=== PATIENT | female | born 1980 | race Caucasian/White ===

== ENCOUNTER 2018-08-07 14:38 | Outpatient (REF) | payer OTHER, SELFPAY ==
[2018-08-07 21:57] LABS: CREATININE 0.84 mg/dL (0.55-1.02); Magnesium 1.9 mg/dL (1.8-2.4); Vitamin B12 526 pg/mL (193-986)
== END 2018-08-07 14:58 ==
LOC: NCHCN 14:38
PROVIDERS: PCP Nurse Practitioner Family; Visit Provider Nurse Practitioner Family
DX: F39 Unspecified mood [affective] disorder (principal); R12 Heartburn; M25.521 Pain in right elbow; E66.9 Obesity, unspecified
CPT/HCPCS: 82565; 82607; 83735

== ENCOUNTER 2019-06-28 11:23 | Outpatient (REF) | payer OTHER, SELFPAY ==
[2019-06-28 20:59] LABS: Abs Immature Grans 0.02 k/cumm (0.0-0.09); Absolute Basophil Count 0.02 k/cumm (0.0-0.2); Absolute Eosinophil Count 0.14 k/cumm (0.0-0.7); Absolute Lymphocyte Count 1.37 k/cumm (1.2-3.4); Absolute Monocyte Count 0.53 k/cumm (0.11-0.7); Absolute Neutrophil Count 5.01 k/cumm (1.2-6.7); Basophils % 0.3; HCT 35.3 % (36.0-46.0); HGB 10.4 g/dL (12.0-15.5); Immature Grans % 0.3 %; Lymphocytes % 19.3; Mean Corp. HGB Concentration 29.5 g/dL (32.0-36.0); Mean Corpuscular Hemoglobin 20.3 pg (27.0-33.0); Mean Corpuscular Volume 68.8 fL (80-95); Mean Platelet Volume 12.4 fL (8.0-11.0); Monocytes % 7.5; Neutrophils % 70.6; RBC 5.13 m/cumm (4.00-5.20); RBC Distribution Width 18.7 % (11.7-14.6); White Blood Cell Count 7.09 k/cumm (4.4-10.8)
[2019-06-28 21:19] LABS: Anisocytosis 2+; Diff Comment RBC Morph Reviewed; Hypochromasia 3+; Microcytosis 3+; Platelet Count 308 x1000/uL (130-400); Polychromasia Present
[2019-06-28 21:27] LABS: Iron 21 ug/dL (50-170); Total Iron Binding Capacity 558 ug/dL (250-450); Transferrin Sat 4 % (15-50)
[2019-06-28 21:42] LABS: ALT 25 U/L (14-59); AST 23 U/L (15-37); Albumin 3.4 g/dL (3.4-5.0); Alkaline Phosphatase 99 U/L (46-116); Anion Gap 10.7 mmol/L (3-11); BUN 15 mg/dL (7-18); Bilirubin, Total 0.3 mg/dL (0.2-1.0); CO2 26.3 mmol/L (21.0-32.0); CREATININE 0.79 mg/dL (0.55-1.02); Calcium 8.8 mg/dL (8.5-10.1); Chloride 104 mmol/L (98-107); Glucose 92 mg/dL (74-106); Magnesium 1.8 mg/dL (1.8-2.4); Potassium 4.5 mmol/L (3.5-5.1); Sodium 141 mmol/L (136-145); TSH (W/Ref FT4) 2.08 uIU/mL (0.36-3.74); Total Protein 7.4 g/dL (6.4-8.2); Vitamin B12 676 pg/mL (193-986)
== END 2019-06-28 11:43 ==
LOC: NCHCN 11:23
PROVIDERS: PCP Nurse Practitioner Family; Visit Provider Nurse Practitioner Family
DX: R53.83 Other fatigue (principal); R51 Headache; R07.89 Other chest pain; R12 Heartburn; F39 Unspecified mood [affective] disorder; E66.9 Obesity, unspecified; M25.522 Pain in left elbow; R55 Syncope and collapse
CPT/HCPCS: 80053; 82607; 83540; 83550; 83735; 84443; 85025

== ENCOUNTER 2019-08-12 22:12 | Outpatient (REF) | payer OTHER, SELFPAY ==
[2019-08-12 22:17] LABS: Abs Immature Grans 0.02 k/cumm (0.0-0.09); Absolute Basophil Count 0.03 k/cumm (0.0-0.2); Absolute Eosinophil Count 0.15 k/cumm (0.0-0.7); Absolute Lymphocyte Count 2.61 k/cumm (1.2-3.4); Absolute Neutrophil Count 5.33 k/cumm (1.2-6.7); Basophils % 0.3; Eosinophils % 1.7; HGB 11.3 g/dL (12.0-15.5); Immature Grans % 0.2 %; Lymphocytes % 29.9; Mean Corp. HGB Concentration 29.7 g/dL (32.0-36.0); Mean Corpuscular Volume 70.8 fL (80-95); Monocytes % 6.9; RBC 5.37 m/cumm (4.00-5.20); White Blood Cell Count 8.74 k/cumm (4.4-10.8)
[2019-08-12 22:25] LABS: Iron 24 ug/dL (50-170)
[2019-08-12 22:38] LABS: Anisocytosis 2+; Hypochromasia 2+; Microcytosis 2+
[2019-08-12 22:39] LABS: Poikilocytes 1+
[2019-08-12 22:40] LABS: Platelet Count 298 x1000/uL (130-400)
== END 2019-08-12 22:32 ==
LOC: NCHCN 22:12
PROVIDERS: PCP Nurse Practitioner Family; Visit Provider Nurse Practitioner Family
DX: D50.9 Iron deficiency anemia, unspecified (principal); R53.83 Other fatigue; R51 Headache; M25.522 Pain in left elbow; R07.89 Other chest pain; R12 Heartburn; F39 Unspecified mood [affective] disorder; E66.9 Obesity, unspecified
CPT/HCPCS: 83540; 85025

== ENCOUNTER 2019-09-14 13:51 | Emergency (ER) | payer OTHER, SELFPAY ==
--- NOTE | 2019-09-14 13:45 | DI.RAD_ITS ---
EXAM: XR FOREARM RT CLINICAL HISTORY: bite, evaluation for retained FB. TECHNIQUE: 2D digital imaging was performed. COMPARISON: No exams were available for comparison FINDINGS: BONES: No acute fracture is present. No bony destructive lesion is seen. Visualized portion of elbow and wrist joints are unremarkable. SOFT TISSUE: Normal. IMPRESSION: Unremarkable radiographs of the right forearm. DATA REPOSITORY: RADIATION DOSE DELIVERED:
--- NOTE | 2019-09-14 13:52 | ED.GENADUL_ITS ---
Discharge Plan Disposition Patient Disposition: HOME Condition: Good Discharge Details Chief Complaint: AnimalBite Clinical Impression: Dog bite of arm Primary Care Provider: Beth Pickett ED Provider: Maria Isabel Giron Home Meds and New Rx's Prescriptions: New amoxicillin-pot clavulanate [Augmentin] 875-125 mg tablet 1 tab PO BID Qty: 13 RF: 0 Continued escitalopram oxalate [Lexapro] 10 MG tablet 10 mg PO DAILY RF: 0 omeprazole [Prilosec] 20 MG capsule,delayed release(DR/EC) 20 mg PO DAILY RF: 0 norgestimate-ethinyl estradiol [Previfem] 0.25-35 mg-mcg tablet PO RF: 0 Discharge Instructions Instructions: Animal Bite (ED) Additional Instructions: Please keep wound clean, dry, covered. Monitor for signs of infection including redness, warmth, drainage, increased pain, fever/chills. If you develop these or other new/worsening symptoms please seek care urgently once again. Please continue with the Augmentin as prescribed, you are given your first dose here today. I would like you to follow-up for reevaluation of your wound with your primary care in 3 days. If you develop any new or worsening symptoms in the interim please seek care emergently. Allow the adhesives to come off naturally. Referrals: Beth Pickett [Primary Care Provider] - Medical Decision Making Patient is a pleasant 39-year-old dubnt-xcaq-putepvxh female presents today with chief complaint of laceration to her right forearm. She reports a prior to arrival she was trying to take away food from her dog when the dog bit her right forearm. She believes the dog is up-to-date on immunizations, she does not know her tetanus status. She reports that dog also attacked her right thigh does not have any active bleeding from this area. She denies . She denies any numbness or tingling distal to the wound. Patient is a 1.5 linear laceration to the dorsal aspect of the right forearm with surrounding swelling and ecchymosis. No active bleeding. No discharge. She is quite tender over this area. 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 Patient does have ecchymosis and swelling on the right thigh with 2 small abrasions but no puncture wounds, no bleeding. She is ambulating well no evidence of weakness or deep structure involvement. Tetanus 2017. To obtain imaging to evaluate for any retained foreign body, particularly as the animal was chewing on a bone. REviewed by radiologist: FINDINGS: Bones/joints: There is no evidence of acute fracture.There is no evidence of malalignment or dislocation. Soft tissues: No retained foreign body. IMPRESSION: 1. There is no evidence of acute fracture.There is no evidence of malalignment or dislocation. 2. No retained foreign body. Discussed these findings with the patient. We discussed possible options regarding wound care management. As this is a bite, I do not want a tight closure on this. It is relatively short wound but does have an exaggerated distance apart in the wound edges associated with the underlying swelling. We discussed loose reapproximation of wound edges with Steri-Strips and adhesive. We discussed risk/benefits and she voiced understanding and wished to proceed. Procedure note: Using standard sterile technique, the wound was copiously irrigated explored to base in a bloodless field no foreign body or debris noted. Wound edges were loosely reapproximated maintaining a slight gap in the edges, adhesives were applied followed by adhesive around the edges of the Steri- Strips. No adhesive was applied over the wound itself. Patient was started on Augmentin, given her first dose here. I encouraged rest, ice, elevation. Tylenol and/or ibuprofen as needed for discomfort. She was given strict return precautions, in particular signs and symptoms of infection. Wound was covered with bandage. All of her questions and concerns were addressed and she is agreement this plan. HPI General Mode of arrival: ambulatory . Date/Time Provider Initiated Documentation: 09/14/19 13:52 . Limitations to Documentation: no limitations . Information obtained by: patient and RN notes reviewed . History of Present Illness 39 year old F presents to the emergency department with the chief complaint of right forearm dog bite, described as moderate, Quality is described as stabbing, and is localized to the right and upper extremity. Patient reports no radiation. Patient started experiencing this minute(s) and it has been constant. No relieving factors improve symptom(s), No exacerbating factors reported . Patient notes no other symptoms.. Patient did receive the following treatments prior to arrival, none Related Data Home Medications Medication Instructions Recorded Confirmed escitalopram oxalate [Lexapro] 10 mg PO DAILY 03/25/15 09/14/19 omeprazole [Prilosec] 20 mg PO DAILY 03/25/15 09/14/19 amoxicillin-pot clavulanate 1 tab PO BID #13 tab 09/14/19 [Augmentin] norgestimate-ethinyl estradiol tab PO 09/14/19 [Previfem] Previous Rx's Medication Instructions Recorded amoxicillin-pot clavulanate 1 tab PO BID #13 tab 09/14/19 [Augmentin] Allergies Allergy/AdvReac Type Severity Reaction Status Date / Time No Known Allergies Allergy Unverified 10/25/16 21:58 Review of Systems Constitutional Constitutional: Reports as per HPI, Denies chills and Denies fever(s) Musculoskeletal Musculoskeletal: Reports as per HPI Integumentary/Breasts Skin/Breast: Reports as per HPI Neurologic Neurologic: Reports as per HPI, Denies sensory deficit and Denies paresthesias [facility] Social History Smoking/Tobacco Use Status: Never Drug use: Never Do you feel safe at home: Yes Do you feel safe in your relationship?: Yes Exam Const General: cooperative, healthy appearing, comfortable, no acute distress and well developed Nutritional Appearance: average body habitus and well nourished Orientation: alert and awake Resp Effort & Inspection: normal respiratory effort, able to speak in complete sentences and no respiratory distress Cardio Rate: regular rate Rhythm: regular rhythm Skin General skin exam: ecchymosis (surrounding laceration and right thigh) Trauma: laceration (1.5cm right forearm, wound edge separation 5mm, deep structures intact) Neuro General: patient alert and patient awake Cognition: normal cognition Speech: speech normal Gait: normal gait Sensory Exam: no sensory deficits noted Extrem Elbow/forearm/wrist images: 1. 1.5cm laceration. 2+ distal pulses, full ROM of elbow, wrist, fingers. Neurovascularly intact Knee images: 1. area of ecchymosis and swelling with 2 abrasions, no break in her pants. No bleeding. Exam otherwise benign. Psych Appearance: grossly normal and well kempt Mental Status: mental status grossly normal Speech and Movement: speech and movement normal
[2019-09-14 13:56] VITALS: BP 136/81; PULSE 81; RESP 17; TEMP 37; O2SAT 97
[2019-09-14] MEDS: Amoxicillin 875/Clav. 125 TAB PO (14:20)
--- NOTE | 2019-09-14 14:25 | DI.VRAD_ITS ---
PROCEDURE INFORMATION: Exam: XR Right Forearm Exam date and time: 09/14/2019 2:13 PM Age: 39 years old Clinical indication: Other: Bite, evaluation for retained fb TECHNIQUE: Imaging protocol: XR Right forearm. Views: 2 views. COMPARISON: No relevant prior studies available. FINDINGS: Bones/joints: There is no evidence of acute fracture.There is no evidence of malalignment or dislocation. Soft tissues: No retained foreign body. IMPRESSION: 1. There is no evidence of acute fracture.There is no evidence of malalignment or dislocation. 2. No retained foreign body. Dictated and Authenticated by: Siddhartha Michaels MD. Ordering:TORIN Nicolas MD
== END 2019-09-14 14:45 | disposition home or self-care (01) ==
PROVIDERS: Emergency Provider Physician Assistant; PCP Nurse Practitioner Family
DX: S51.851A Open bite of right forearm, initial encounter (principal); W54.0XXA Bitten by dog, initial encounter
CPT/HCPCS: 12001; 73090

== ENCOUNTER 2019-11-12 17:21 | Outpatient (REF) | payer OTHER, SELFPAY ==
[2019-11-12 20:23] LABS: Abs Immature Grans 0.01 k/cumm (0.0-0.09); Absolute Basophil Count 0.02 k/cumm (0.0-0.2); Absolute Eosinophil Count 0.12 k/cumm (0.0-0.7); Absolute Lymphocyte Count 2.02 k/cumm (1.2-3.4); Absolute Monocyte Count 0.64 k/cumm (0.11-0.7); Absolute Neutrophil Count 4.54 k/cumm (1.2-6.7); Basophils % 0.3; Eosinophils % 1.6; HCT 42.3 % (36.0-46.0); HGB 12.9 g/dL (12.0-15.5); Immature Grans % 0.1 %; Lymphocytes % 27.5; Mean Corp. HGB Concentration 30.5 g/dL (32.0-36.0); Mean Corpuscular Hemoglobin 23.9 pg (27.0-33.0); Mean Corpuscular Volume 78.3 fL (80-95); Mean Platelet Volume 12.3 fL (8.0-11.0); Monocytes % 8.7; Neutrophils % 61.8; Platelet Count 293 x1000/uL (130-400); RBC Distribution Width 20.1 % (11.7-14.6); White Blood Cell Count 7.35 k/cumm (4.4-10.8)
[2019-11-12 20:39] LABS: Iron 25 ug/dL (50-170)
== END 2019-11-12 17:41 ==
LOC: NCHCN 17:21
PROVIDERS: PCP Nurse Practitioner Family; Visit Provider Nurse Practitioner Family
DX: D50.9 Iron deficiency anemia, unspecified (principal); R53.83 Other fatigue; R51 Headache; R12 Heartburn; F39 Unspecified mood [affective] disorder; E66.9 Obesity, unspecified
CPT/HCPCS: 83540; 85025

== ENCOUNTER 2020-04-17 14:16 | Outpatient (REF) | payer OTHER, SELFPAY ==
[2020-04-22 13:38] LABS: Patient Race White; SARS-CoV-2 RNA Undetected (Undetected); SARS-CoV-2 Specimen Source Nasal
== END 2020-04-17 14:36 ==
LOC: NCHCN 14:16
PROVIDERS: PCP Nurse Practitioner Family; Visit Provider Nurse Practitioner Family
DX: Z20.828 Contact with and (suspected) exposure to other viral communicable diseases (principal)
CPT/HCPCS: U0003

== ENCOUNTER 2020-04-24 10:51 | Outpatient (REF) | payer OTHER, SELFPAY ==
[2020-04-24 21:55] LABS: Abs Immature Grans 0.03 10^3/uL (0.0-0.06); Absolute Basophil Count 0.04 10^3/uL (0.0-0.2); Absolute Eosinophil Count 0.08 10^3/uL (0.0-0.7); Absolute Lymphocyte Count 1.42 10^3/uL (1.2-3.4); Absolute Monocyte Count 0.52 10^3/uL (0.1-0.8); Absolute Neutrophil Count 4.99 10^3/uL (1.2-6.7); Basophils % 0.6; Eosinophils % 1.1; HCT 46.9 % (36.0-46.0); HGB 14.6 g/dL (11.2-15.7); Immature Grans % 0.4; Iron 65 ug/dL (50-170); Lymphocytes % 20.1; MCH 28.7 pg (27.0-33.0); MCHC 31.1 % (32.0-36.0); MCV 92.1 fL (80-95); Monocytes % 7.3; Neutrophils % 70.5; Nucleated RBC 0 %; Platelet Count 274 10^3/uL (130-400); RBC 5.09 10^6/uL (3.93-5.22); RDW 13.7 % (11.7-14.6); RDW-SD 46.8 fL; Total Iron Binding Capacity 439 ug/dL (250-450); Transferrin Sat 15 % (15-50); WBC 7.08 10^3/uL (4.4-10.8)
[2020-04-24 22:34] LABS: ESR 36 mm/hr (0-20)
[2020-04-24 22:37] LABS: ALT 19 U/L (14-59); AST 15 U/L (15-37); Albumin 3.6 g/dL (3.4-5.0); Alkaline Phosphatase 97 U/L (46-116); Anion Gap 9.2 mmol/L (3-11); BUN 9 mg/dL (7-18); Bilirubin, Total 0.2 mg/dL (0.2-1.0); CO2 28.8 mmol/L (21.0-32.0); CREATININE 0.81 mg/dL (0.55-1.02); Calcium 8.9 mg/dL (8.5-10.1); Chloride 103 mmol/L (98-107); Ferritin 24 ng/mL (8-252); Glucose 84 mg/dL (74-106); Magnesium 2.1 mg/dL (1.8-2.4); Potassium 4.2 mmol/L (3.5-5.1); Sodium 141 mmol/L (136-145); Total Protein 7.4 g/dL (6.4-8.2); Vitamin B12 563 pg/mL (193-986)
[2020-04-24 22:58] LABS: C-Reactive Protein 1.65 mg/dL (0.0-0.3)
[2020-04-30 15:02] LABS: Anaplasma phagocytophilum Negative (Negative); Babesia divergens/MO-1 Negative (Negative); Babesia duncani Negative (Negative); Babesia microti Negative (Negative); Ehrlichia chaffeensis Negative (Negative); Ehrlichia ewingii/canis Negative (Negative); Ehrlichia muris eauclairensis Negative (Negative); Lyme Ab w Rflx to Lyme Confirm Negative (Negative)
[2020-04-30 15:03] LABS: B. miyamotoi PCR Negative (Negative)
== END 2020-04-24 11:11 ==
LOC: NCHCN 10:51
PROVIDERS: PCP Nurse Practitioner Family; Visit Provider Nurse Practitioner Family
DX: D50.9 Iron deficiency anemia, unspecified (principal); R53.83 Other fatigue; M79.10 Myalgia, unspecified site
CPT/HCPCS: 80053; 85652; 87798; 82607; 82728; 83540; 83550; 83735; 84443; 85025; 86038; 86140; 86618

== ENCOUNTER 2020-05-28 21:51 | Outpatient (REF) | payer OTHER, SELFPAY ==
[2020-05-28 22:51] LABS: Vitamin D 25 Total 24.2 ng/ml (30-100)
== END 2020-05-28 22:11 ==
LOC: NCHCN 21:51
PROVIDERS: PCP Nurse Practitioner Family; Visit Provider Nurse Practitioner Family
DX: R53.83 Other fatigue (principal); F39 Unspecified mood [affective] disorder
CPT/HCPCS: 82306

== ENCOUNTER 2020-06-17 15:04 | Outpatient (REF) | payer OTHER, SELFPAY ==
[2020-06-19 13:05] LABS: Phospholipid Ab, IgG <9.4 GPL; Phospholipid Ab, IgM 11.9 MPL
[2020-06-19 21:32] LABS: Beta 2 GP1 Ab IgG <9.4 U/mL; Beta 2 GP1 Ab IgM <9.4 U/mL
== END 2020-06-17 15:24 ==
LOC: NCHCN 15:04
PROVIDERS: PCP Nurse Practitioner Family; Visit Provider Nurse Practitioner Family
DX: R76.8 Other specified abnormal immunological findings in serum (principal)
CPT/HCPCS: 86146; 86147

== ENCOUNTER 2020-06-17 15:25 | Emergency (ER) | payer OTHER, SELFPAY ==
[2020-06-17] VITALS (38 sets, daily range): BP systolic 109–131; BP diastolic 72–81; PULSE 62–81; RESP 12–25; TEMP 36.4–36.6; O2SAT 97–100
--- NOTE | 2020-06-17 15:30 | RT.EKG_ITS ---
APPROVED REPORT Exam: Resting ECG Patient Location: E HR:84 bpm ECG Measurements Heart Rate 84 AXIS ND 143 P 79 QRSd 93 QRS 43 QT 392 T 17 QTc 465 Conclusion Sinus rhythm...normal P axis, V-rate 60- 99 prolonged qt
[2020-06-17 16:19] LABS: Abs Immature Grans 0.04 10^3/uL (0.0-0.06); Absolute Basophil Count 0.03 10^3/uL (0.0-0.2); Absolute Eosinophil Count 0.15 10^3/uL (0.0-0.7); Absolute Lymphocyte Count 2.31 10^3/uL (1.2-3.4); Absolute Monocyte Count 0.72 10^3/uL (0.1-0.8); Absolute Neutrophil Count 6.61 10^3/uL (1.2-6.7); Basophils % 0.3; Eosinophils % 1.5; HCT 46.2 % (36.0-46.0); HGB 14.5 g/dL (11.2-15.7); Immature Grans % 0.4; Lymphocytes % 23.4; MCH 28.6 pg (27.0-33.0); MCHC 31.4 % (32.0-36.0); MCV 91.1 fL (80-95); MPV 11.5 fL (8.0-11.0); Monocytes % 7.3; Neutrophils % 67.1; Nucleated RBC 0 %; Platelet Count 292 10^3/uL (130-400); RBC 5.07 10^6/uL (3.93-5.22); RDW 13.8 % (11.7-14.6); RDW-SD 46.6 fL; WBC 9.86 10^3/uL (4.4-10.8)
[2020-06-17] MEDS: ACETAMINOPHEN 1,000 MG/100 ML BTL 400 MG IVPB (16:32)
[2020-06-17 16:36] LABS: Bilirubin Negative (Negative); Blood Small (Negative); Clarity Clear (Clear); Glucose Negative (Negative); Ketones Negative (Negative); Leukocyte Esterase Negative (Negative); Nitrite Negative (Negative); Specific Gravity 1.025 (1.005-1.025); Urobilinogen 0.2 EU/dL (Up TO 0.2)
[2020-06-17 16:42] LABS: ALT 18 U/L (14-59); AST 13 U/L (15-37); Albumin 3.3 g/dL (3.4-5.0); Alkaline Phosphatase 98 U/L (46-116); BUN 10 mg/dL (7-18); Bilirubin, Total 0.2 mg/dL (0.2-1.0); Calcium 8.8 mg/dL (8.5-10.1); Chloride 105 mmol/L (98-107); Glucose 101 mg/dL (74-106); Potassium 3.2 mmol/L (3.5-5.1); Sodium 140 mmol/L (136-145); Total Protein 7.8 g/dL (6.4-8.2)
[2020-06-17 16:45] LABS: Troponin I < 0.05 ng/mL (<0.06)
[2020-06-17 17:04] LABS: Bacteria Negative HPF (Negative); C & S Indicated? No; Crystals Negative HPF (Negative); Epithelial Cells Negative HPF (Negative); Mucus Negative (Negative); Other Cells Rare Yeast (Negative); WBC 0-2 HPF (0-5)
--- NOTE | 2020-06-17 17:05 | DI.CT_ITS ---
EXAM: CT CHEST PE ABD PELVIS W CLINICAL HISTORY: chest pain. TECHNIQUE: Imaging Protocol: Axial CT angiography was performed with multi-slice acquisition and m ulti-planar and/or 3D reconstructions. CONTRAST MATERIAL: Intravenous: Omnipaque 350 Contrast volume:100 ml Oral: None COMPARISON: CT ABD PELVIS WITH CONTRAST from 09/19/2017 FINDINGS: CHEST: PULMONARY ARTERIES: There are no intra-arterial filling defects to suggest the presence of acute pulm onary emboli. LUNGS: There is no evidence of pulmonary infarction. No significant infiltrates.However, there appea r to be tiny bilateral pleural effusions, barely discernible. MEDIASTINUM: There is no hilar nor mediastinal adenopathy. Visualized thyroid unremarkable. CARDIAC: Heart size is normal. There is no pericardial effusion. There is no significant shift of t he interventricular septum.Caliber of the thoracic no evidence of aortic dissection. OSSEOUS: No significant osseous lesions.. ABDOMEN: There is no ascites. LIVER: There are no focal hepatic lesions nor dilatation of intrahepatic ducts. GALLBLADDER/BILIARY: No obvious gallbladder pathology. CBD is not dilated. PANCREAS: No evidence of pancreatic mass nor dilatation of the pancreatic duct. SPLEEN: Spleen is not enlarged. There are no intrasplenic lesions. Splenic and portal veins are pickett nt. ADRENALS: There are no significant adrenal masses. KIDNEYS:No cysts evident. No calculi nor hydronephrosis. No solid renal masses. ABDOMINAL AORTA: Abdominal aorta is not enlarged and there is no milkmgsmrichwwj-izla-pzzsfz adenopat hy. ABDOMINAL WALL/GI: No evidence of significant anterior abdominal wall hernia. No bowel obstruction. PELVIS: LYMPH NODES: There is no intrapelvic nor inguinal adenopathy. GI: No evidence of appendicitis.No evidence of sigmoid diverticulitis. URINARY BLADDER: No calculi nor masses evident REPRODUCTIVE: Unremarkable. OSSEOUS: No significant osseous lesions. IMPRESSION: 1. No evidence of acute pulmonary emboli nor pulmonary infarction. 2. There are the bilateral pleural effusions. No intrathoracic adenopathy. 3. No significant findings in the abdomen and pelvis. RADIATION DOSE DELIVERED: 1,691.89mGy.cm Total DLP 1,691.89mGy.cm Total DLP DATA REPOSITORY: All CT scans at this facility are submitted to the National Radiology Data Registry (NRDR) Dose Index Registry (DIR) with the [employer] (A[employer]). RADIATION OPTIMIZATION: All CT scans at this facility use at least one of these dose optimization te chniques: automated exposure control; mA and/or kV adjustment per patient size (includes targeted exa ms where dose is matched to clinical indication); or iterative reconstruction.
--- NOTE | 2020-06-17 17:25 | DI.VRAD_ITS ---
PROCEDURE INFORMATION: Exam: CT Angiography Chest With Contrast Exam date and time: 06/17/2020 4:12 PM Age: 40 years old Clinical indication: Chest pain; Abdominal pain; Flank; Left upper quadrant (luq) TECHNIQUE: Imaging protocol: Computed tomographic angiography of the chest with intravenous contrast. 3D rendering (Not supervised by radiologist): MIP and/or 3D reconstructed images were created by the technologist. Radiation optimization: All CT scans at this facility use at least one of these dose optimization techniques: automated exposure control; mA and/or kV adjustment per patient size (includes targeted exams where dose is matched to clinical indication); or iterative reconstruction. Contrast material: OMNI 300; COMPARISON: CR CHEST 2 VIEWS PA,LAT 08/20/2014 9:01 AM FINDINGS: Pulmonary arteries: Normal. No pulmonary emboli. Aorta: Unremarkable. No aortic aneurysm. No aortic dissection. Lungs: Unremarkable. No consolidation. No masses. Pleural space: Small bilateral pleural effusions. Heart: Unremarkable. No cardiomegaly. No pericardial effusion. Lymph nodes: Unremarkable. No enlarged lymph nodes. Bones/joints: Unremarkable. No acute fracture. Soft tissues: Unremarkable. IMPRESSION: 1. No aortic dissection. 2. No pulmonary emboli. 3. Small bilateral pleural effusions. PROCEDURE INFORMATION: Exam: CT Angiography Abdomen With Contrast Exam date and time: 06/17/2020 4:12 PM Age: 40 years old Clinical indication: Chest pain; Abdominal pain; Flank; Left upper quadrant (luq) TECHNIQUE: Imaging protocol: Computed tomographic angiography images of the abdomen with intravenous contrast material. 3D rendering (Not supervised by radiologist): MIP and/or 3D reconstructed images were created by the technologist. Radiation optimization: All CT scans at this facility use at least one of these dose optimization techniques: automated exposure control; mA and/or kV adjustment per patient size (includes targeted exams where dose is matched to clinical indication); or iterative reconstruction. Contrast material: OMNI 300; COMPARISON: CR CHEST 2 VIEWS PA,LAT 08/20/2014 9:01 AM FINDINGS: Aorta: No aortic aneurysm. No aortic dissection. Celiac trunk and mesenteric arteries: No occlusion or significant stenosis. Renal arteries: No occlusion or significant stenosis. Liver: Normal. No mass. Gallbladder and bile ducts: Normal. No calcified stones. No ductal dilation. Pancreas: Normal. No ductal dilation. Spleen: Normal. No splenomegaly. Adrenals: Normal. No mass. Kidneys and ureters: Normal. No hydronephrosis. Stomach and bowel: Unremarkable. No obstruction. No mucosal thickening. Lymph nodes: Unremarkable. No enlarged lymph nodes. Intraperitoneal space: Unremarkable. No free air. No significant fluid collection. Reproductive: Midline uterus with no adnexal mass. Bones/joints: Unremarkable. No acute fracture. No dislocation. Soft tissues: Small fat containing umbilical hernia. IMPRESSION: No acute findings. Dictated and Authenticated by: Jeevan Casanova MD. Ordering:CHIDI Juarez MD
--- NOTE | 2020-06-17 17:48 | ED.GENADUL_ITS ---
Discharge Plan Disposition Patient Disposition: HOME Condition: Stable Discharge Details Clinical Impression: Acute left flank pain, Hematuria, History of paresthesia Primary Care Provider: Beth Pickett ED Provider: Larry Swift Home Meds and New Rx's Prescriptions: Continued escitalopram oxalate [Lexapro] 10 mg tablet 20 mg PO DAILY RF: 0 ferrous gluconate 256 mg (28 mg iron) tablet 256 mg PO DAILY RF: 0 omeprazole 20 mg capsule,delayed release(DR/EC) 20 mg PO DAILY RF: 0 norgestimate-ethinyl estradiol [Previfem] 0.25-35 mg-mcg tablet 1 tab PO DAILY RF: 0 Discharge Instructions Instructions: Hematuria (ED), Flank Pain (ED) Additional Instructions: Please follow-up tomorrow with your primary care physician and [facility] neurology. [facility] neurology as requested MRI be expedited. I have asked care management to assist in arranging these studies as soon as possible. Please take ibuprofen over the counter. Take 600mg by mouth every 6 hours as needed for pain. Please take acetaminophen (tylenol) - 650mg every 6 hours by mouth as needed for pain. Return to the ER for any worsening or new concerning symptoms. Referrals: Beth Pickett [Primary Care Provider] - Medical Decision Making 18:17 -- 40-year-old female with severe pain in her left back radiating to left flank. Patient has had intermittent paresthesias effected right side of her body over the past 2-3 months. Seen by rheumatology and referred to neurology. There is concern for potential MS and she is scheduled for outpatient MRI. Screening ECG was reviewed and interpreted by me: Sinus rhythm 84 bpm, normal axis, very subtle ST depressions noted V4 to V6. No old for comparison. Troponin done and negative. Patient has no chest pain. Considered pulmonary embolism versus renal stone versus other acute surgical or life-threatening pathology. CT imaging was obtained. CT of the chest was interpreted by radiology: IMPRESSION: 1. No aortic dissection. 2. No pulmonary emboli. 3. Small bilateral pleural effusions. CT of the abdomen pelvis interpreted by radiology: FINDINGS: Aorta: No aortic aneurysm. No aortic dissection. Celiac trunk and mesenteric arteries: No occlusion or significant stenosis. Renal arteries: No occlusion or significant stenosis. Liver: Normal. No mass. Gallbladder and bile ducts: Normal. No calcified stones. No ductal dilation. Pancreas: Normal. No ductal dilation. Spleen: Normal. No splenomegaly. Adrenals: Normal. No mass. Kidneys and ureters: Normal. No hydronephrosis. Stomach and bowel: Unremarkable. No obstruction. No mucosal thickening. Lymph nodes: Unremarkable. No enlarged lymph nodes. Intraperitoneal space: Unremarkable. No free air. No significant fluid collection. Reproductive: Midline uterus with no adnexal mass. Bones/joints: Unremarkable. No acute fracture. No dislocation. Soft tissues: Small fat containing umbilical hernia. IMPRESSION: No acute findings. Labs reviewed - nondiagnostic. Patient reassessed after acetaminophen IV and continues to have discomfort of unclear etiology. Given recent neurologic symptoms does raise a question of potential transverse myelitis. Patient does not have any autonomic dysreflexia and no current focal neurologic deficits but has had waxing and waning paresthesias affecting the right side of her body. I do not have MRI capability here at [facility] today. Will consult [facility] neurology. I have called the transfer center to request consult. 18:53 -- I called and spoke with Dr. Shafer neurology at [facility] - she recommends MRI tomorrow and outpatient followup. I will ask care management to assist in arranging study through pcp tomorrow. [facility] recommend C, T, L spine with and w/o contrast. Usual customary discharge instructions reviewed with patient and she understands return immediately for any worsening or new concerning symptoms. HPI General Mode of arrival: ambulatory . Date/Time Provider Initiated Documentation: 06/17/20 15:37 . Limitations to Documentation: no limitations . Information obtained by: patient . HPI Narrative: 40-year-old female with severe pain in her left back radiating to left flank. Patient has had intermittent paresthesias effected right side of her body over the past 2-3 months. Seen by rheumatology and referred to neurology. There is concern for potential MS and she is scheduled for outpatient MRI. Pain today is moderate to severe. Pain started yesterday. Described as tight pressure that started in her left mid paraspinal back and radiated to left flank. Pain worse with deep inspiration. No leg swelling or calf pain. Related Data Home Medications Medication Instructions Recorded Confirmed norgestimate-ethinyl estradiol 1 tab PO DAILY 09/14/19 06/17/20 [Previfem] escitalopram oxalate 10 mg tablet 20 mg PO DAILY tab 05/26/20 06/17/20 ferrous gluconate 256 mg (28 mg 256 mg PO DAILY 05/26/20 06/17/20 iron) tablet omeprazole 20 mg capsule,delayed 20 mg PO DAILY 05/26/20 06/17/20 release Allergies Allergy/AdvReac Type Severity Reaction Status Date / Time No Known Allergies Allergy Unverified 06/17/20 15:39 General Stated Complaint: Abd Prob SVITLANA: 3 Review of Systems All systems reviewed & are unremarkable except as noted in HPI and below Gastrointestinal Gastrointestinal: Reports as per HPI Genitourinary Genitourinary: Denies urinary incontinence [facility] Medical History Anemia, iron deficiency Elevated antinuclear antibody (LIZA) level Elevated C-reactive protein Elevated sedimentation rate Fatigue Frequent sinus infections Headache Heartburn Malaise and fatigue Mood disorder Myalgia Obesity Paresthesia Social History Smoking/Tobacco Use Status: Never Smoking risk assessment performed?: Yes Drug use: Never Substance use type: does not use Do you feel safe at home: Yes Do you feel safe in your relationship?: Yes Exam Const General: cooperative and no acute distress HENMT Mouth: moist mucous membranes Eyes Conjunctivae: normal conjunctivae Sclera: normal sclerae Neck Neck: trachea midline and supple Resp Auscultation: clear to auscultation bilaterally, no rales, no rhonchi and no wheezes Cardio Rate: regular rate and not tachycardic Rhythm: regular rhythm GI Palpation: soft, not firm, no guarding, no masses, not rigid and tender in the LUQ; with no rebound tenderness Back/Spine/Pelvis Cervical Spine: No cervical spinal tenderness Thoracic/Lumbar Spine: paraspinal tenderness (left), No thoracic spinal t enderness and No lumbar spinal tenderness Sacrum: no ecchymosis, no erythema and no swelling Skin General skin exam: no rashes or lesions noted Neuro General: patient alert, patient awake, patient oriented x3 and tone normal Cranial Nerves: CN's II-XI intact bilaterally Cognition: normal cognition Speech: speech normal Motor: strength 5/5 throughout Sensory Exam: no sensory deficits noted Extrem General: no edema Psych Appearance: grossly normal Mental Status: mental status grossly normal Speech and Movement: speech and movement normal Course Vital Signs Vital signs: Vital Signs Temperature 36.4 C L 06/17/20 15:32 Pulse 81 06/17/20 15:32 Respiratory Rate 16 06/17/20 15:32 Pulse Oximetry 100 06/17/20 15:32 Temperature 36.4 C L 06/17/20 15:32 Temperature Source Temporal Artery Scan 06/17/20 15:32 Pulse 65 06/17/20 16:31 Pulse 65 06/17/20 16:40 Respiratory Rate 25 H 06/17/20 16:40 Respiratory Effort Non-Labored 06/17/20 15:37 Blood Pressure 122/73 06/17/20 16:31 Blood Pressure Mean 86 06/17/20 16:31 Blood Pressure Position Supine 06/17/20 15:32 Pulse Oximetry 99 06/17/20 16:40 Oxygen Delivery Method Room Air 06/17/20 15:32 Oxygen Flow Rate 0 06/17/20 15:32 Pain Level 7 06/17/20 15:32 Lab/Test Results Lab/Test Results: Laboratory Tests Range/Units 06/17/20 06/17/20 06/17/20 15:30 15:30 16:25 WBC (4.4-10.8) 10^3/uL 9.86 RBC (3.93-5.22) 10^6/uL 5.07 Hgb (11.2-15.7) g/dL 14.5 Hct (36.0-46.0) % 46.2 H MCV (80-95) fL 91.1 MCH (27.0-33.0) pg 28.6 MCHC (32.0-36.0) % 31.4 L RDW (11.7-14.6) % 13.8 Plt Count (130-400) 10^3/uL 292 MPV (8.0-11.0) fL 11.5 H Immature Gran % 0.4 Neutrophils % 67.1 Lymphocytes % 23.4 Monocytes % 7.3 Eosinophils % 1.5 Basophils % 0.3 Nucleated RBC % % 0 Absolute Neutrophils (1.2-6.7) 10^3/uL 6.61 Absolute Lymphocytes (1.2-3.4) 10^3/uL 2.31 Absolute Monocytes (0.1-0.8) 10^3/uL 0.72 Absolute Eosinophils (0.0-0.7) 10^3/uL 0.15 Absolute Basophils (0.0-0.2) 10^3/uL 0.03 Sodium (136-145) mmol/L 140 Potassium (3.5-5.1) mmol/L 3.2 L Chloride (98-107) mmol/L 105 Carbon Dioxide (21.0-32.0) mmol/L 26.0 Anion Gap (3-11) mmol/L 9.0 BUN (7-18) mg/dL 10 Creatinine (0.55-1.02) mg/dL 0.90 Estimated GFR/1.73 m2 (mL/min/1.73m2) >= 60.00 Glucose (74-106) mg/dL 101 Calcium (8.5-10.1) mg/dL 8.8 Total Bilirubin (0.2-1.0) mg/dL 0.2 AST (15-37) U/L 13 L ALT (14-59) U/L 18 Alkaline Phosphatase (46-116) U/L 98 Troponin I (<0.06) ng/mL < 0.05 Total Protein (6.4-8.2) g/dL 7.8 Albumin (3.4-5.0) g/dL 3.3 L Urine Color (Yellow) Yellow Urine Clarity (Clear) Clear Urine pH (5-8) 6.0 Ur Specific Krebs (1.005-1.025) 1.025 Urine Protein (Negative) mg/dL Negative Urine Ketones (Negative) mg/dL Negative Urine Blood (Negative) Small H Urine Nitrite (Negative) Negative Urine Bilirubin (Negative) Negative Urine Urobilinogen (Up TO 0.2) EU/dL 0.2 Ur Leukocyte Esterase (Negative) Negative Urine RBC (0-2) HPF 10-20 H Urine WBC (0-5) HPF 0-2 Ur Epithelial Cells (Negative) HPF Negative Urine Crystals (Negative) HPF Negative Urine Bacteria (Negative) HPF Negative Urine Mucus (Negative) Negative Urine Other (Negative) Rare yeast Ur Culture Indicated? No Urine Glucose (Negative) mg/dL Negative POC- Test(urine) Negative
[2020-06-17] MEDS: oxyCODONE 5 MG TAB PO (18:02)
[2020-06-17] MEDS: Potassium Chloride 20 MEQ TABCR PO (18:02)
== END 2020-06-17 19:35 | disposition home or self-care (01) ==
PROVIDERS: Emergency Provider Student in an Organized Health Care Education/Training Program; PCP Nurse Practitioner Family
DX: M54.5 Low back pain (principal); R10.32 Left lower quadrant pain; R20.2 Paresthesia of skin; R31.9 Hematuria, unspecified
CPT/HCPCS: 36415; 71275; 74177; 80053; 81025; 93005; 96365; 99285; 81003; 81015; 84484; 85025; 93010; J0131

== ENCOUNTER 2020-08-04 02:57 | Outpatient (CLI) | payer OTHER, SELFPAY ==
--- NOTE | 2020-08-04 15:45 | RT.EKG_ITS ---
APPROVED REPORT Exam: Resting ECG Patient Location: O HR:66 bpm ECG Measurements Heart Rate 66 AXIS CA 144 P 56 QRSd 89 QRS 14 QT 414 T 17 QTc 434 Conclusion Sinus rhythm...normal P axis, V-rate 60- 99 1
== END 2020-08-04 02:58 | disposition home or self-care (01) ==
LOC: RT 02:58
PROVIDERS: PCP Nurse Practitioner Family; Visit Provider Internal Medicine
DX: R79.82 Elevated C-reactive protein (CRP) (principal)
CPT/HCPCS: 93005; 93010

== ENCOUNTER 2020-09-09 11:16 | Emergency (ER) | payer OTHER, SELFPAY ==
[2020-09-09] VITALS (37 sets, daily range): BP systolic 112–126; BP diastolic 73–93; PULSE 68–90; RESP 14–29; TEMP 36.6; O2SAT 97–100
--- NOTE | 2020-09-09 11:15 | RT.EKG_ITS ---
APPROVED REPORT Exam: Resting ECG Patient Location: E HR:76 bpm ECG Measurements Heart Rate 76 AXIS W[place] 144 P 43 QRSd 93 QRS 25 QT 412 T 13 QTc 463 Conclusion Sinus rhythm...normal P axis, V-rate 60- 99 I have reviewed and interpreted ECG and agree with software generated interpretation.
--- NOTE | 2020-09-09 11:31 | ED.GENADUL_ITS ---
Discharge Plan Disposition Patient Disposition: HOME Condition: Stable Discharge Details Clinical Impression: Atypical chest pain Primary Care Provider: Beth Pickett ED Provider: Leesa Matson Home Meds and New Rx's Prescriptions: Continued escitalopram oxalate [Lexapro] 10 mg tablet 20 mg PO DAILY RF: 0 ferrous gluconate 256 mg (28 mg iron) tablet 256 mg PO DAILY RF: 0 omeprazole 20 mg capsule,delayed release(DR/EC) 20 mg PO DAILY RF: 0 norgestimate-ethinyl estradiol [Previfem] 0.25-35 mg-mcg tablet 1 tab PO DAILY RF: 0 doxycycline monohydrate 100 mg tablet 200 mg PO BID RF: 0 Discharge Instructions Instructions: Chest Pain (ED) Additional Instructions: Drink plenty of fluids and get plenty of rest. Alternate tylenol and motrin as needed and directed for pain. Return the quality assurance monitor to the hospital as directed by respiratory therapy. Call your primary care doctor's office tomorrow to schedule a follow-up appointment for reevaluation and for referral for outpatient stress test if your symptoms do not improve or worsen. Return immediately to the emergency department if you develop any worsening or new concerning symptoms. Discharge Data Discharge Date/Time-TO BE ENTERED AT DEPARTURE: 09/09/20 15:28 Discharge Physician: Leesa Matson Medical Decision Making 40-year-old female with a history of chronic fatigue, obesity currently being followed by rheumatology for potential autoimmune disease and being treated with doxycycline for Lyme disease presents for an episode of abnormal heart rate and left-sided chest pressure that occurred while sitting at home today. She showed me a review of her heart rate over several hours this morning in the range of between 64 and 115. She denies any palpitations, shortness of breath, vomiting or dizziness during these episodes. She states she has mild left-sided chest pressure at this time. EKG notes a rate of 76, sinus, no STEMI, nondiagnostic. She appears comfortable and nontoxic. Her lungs are clear. Chest and abdomen nontender. Differential diagnosis includes chest wall strain, anxiety, medication reaction. Also consider PE, pneumonia, costochondritis. History and presentation not consistent with ACS or dissection. Will obtain screening labs, CT chest and give a dose of Toradol and reassess. Labs and imaging reviewed and unremarkable. Patient reassessed and her pain is improved. She is agreeable with plan to stay for a second troponin. Repeat troponin negative. Repeat EKG unchanged. Patient states she now noticed that her heart rate dropped as low as the 40s today on her watch tracker. Patient has been on the quality assurance monitor while in the emergency department and there was no bradycardia or tachycardia noted. Will place a 48-hour quality assurance monitor. Patient advised to follow-up with her primary care doctor for reevaluation and for consideration for outpatient stress test if her symptoms not improve or worsen. Usual and customary return precautions given prior to discharge. Medical Records Medical records reviewed: Yes I reviewed the patient's medical records. Imaging Data Radiologic Study: Radiologist's impression: CT CHEST PE CTA CLINICAL HISTORY: chest pressure, r/o PE. TECHNIQUE: Imaging Protocol: CT angiography of the chest was performed using pulmonary embolus protocol. Multi planar reconstructions were performed. CONTRAST MATERIAL: Intravenous: Omnipaque 350 Contrast volume: 100 cc COMPARISON: CT CT CHEST PE ABD PELVIS W from 06/17/2020 FINDINGS: CHEST: PULMONARY ARTERIES: There are no intraluminal filling defects to suggest acute pulmonary emboli. LUNGS: Mild benign-appearing increased subpleural markings both lungs. No confluent infiltrates. No ominous pulmonary nodules.. No pleural effusions. No significant focal findings in the trachea and mainstem bronchi. MEDIASTINUM: There is no hilar nor mediastinal adenopathy. Visualized thyroid unremarkable. CARDIAC: Heart size is normal. There is no pericardial effusion.Caliber of the thoracic aorta is within normal limits. There is no evidence of shift of the interventricular septum. PARTIALLY VISUALIZED UPPERMOST ABDOMEN: No obvious findings OSSEOUS: No significant osseous lesions.Scoliosis noted convex right in the thoracic spine.. IMPRESSION: 1. No evidence of acute pulmonary emboli. No evidence of pulmonary infarction.No pleural effusions. 2. No intrathoracic adenopathy evident. 3. Scoliosis convex right noted in the thoracic spinal column. Lab Data Lab results reviewed: Yes I reviewed the patient's lab results. Labs: Laboratory Tests Range/Units 09/09/20 09/09/20 09/09/20 11:30 11:30 11:30 WBC (4.4-10.8) 10^3/uL 7.81 RBC (3.93-5.22) 10^6/uL 4.90 Hgb (11.2-15.7) g/dL 13.8 Hct (36.0-46.0) % 44.3 MCV (80-95) fL 90.4 MCH (27.0-33.0) pg 28.2 MCHC (32.0-36.0) % 31.2 L RDW (11.7-14.6) % 14.5 Plt Count (130-400) 10^3/uL 262 MPV (8.0-11.0) fL 11.2 H Immature Gran % 0.4 Neutrophils % 67.6 Lymphocytes % 23.2 Monocytes % 6.8 Eosinophils % 1.4 Basophils % 0.6 Nucleated RBC % % 0 Absolute Neutrophils (1.2-6.7) 10^3/uL 5.28 Absolute Lymphocytes (1.2-3.4) 10^3/uL 1.81 Absolute Monocytes (0.1-0.8) 10^3/uL 0.53 Absolute Eosinophils (0.0-0.7) 10^3/uL 0.11 Absolute Basophils (0.0-0.2) 10^3/uL 0.05 PT (9.3-11.0) sec 10.2 INR (0.9-1.1) 1.0 APTT (21.0-27.5) sec 27.0 Sodium (136-145) mmol/L 140 Potassium (3.5-5.1) mmol/L 3.7 Chloride (98-107) mmol/L 105 Carbon Dioxide (21.0-32.0) mmol/L 25.1 Anion Gap (3-11) mmol/L 9.9 BUN (7-18) mg/dL 10 Creatinine (0.55-1.02) mg/dL 1.0 Estimated GFR/1.73 m2 (mL/min/1.73m2) >= 60.00 Glucose (74-106) mg/dL 112 H Calcium (8.5-10.1) mg/dL 9.0 Magnesium (1.8-2.4) mg/dL 2.0 Total Bilirubin (0.2-1.0) mg/dL 0.4 AST (15-37) U/L 19 ALT (14-59) U/L 27 Alkaline Phosphatase (46-116) U/L 85 Troponin I (<0.06) ng/mL < 0.05 Total Protein (6.4-8.2) g/dL 7.6 Albumin (3.4-5.0) g/dL 3.4 Range/Units 09/09/20 14:30 WBC (4.4-10.8) 10^3/uL RBC (3.93-5.22) 10^6/uL Hgb (11.2-15.7) g/dL Hct (36.0-46.0) % MCV (80-95) fL MCH (27.0-33.0) pg MCHC (32.0-36.0) % RDW (11.7-14.6) % Plt Count (130-400) 10^3/uL MPV (8.0-11.0) fL Immature Gran % Neutrophils % Lymphocytes % Monocytes % Eosinophils % Basophils % Nucleated RBC % % Absolute Neutrophils (1.2-6.7) 10^3/uL Absolute Lymphocytes (1.2-3.4) 10^3/uL Absolute Monocytes (0.1-0.8) 10^3/uL Absolute Eosinophils (0.0-0.7) 10^3/uL Absolute Basophils (0.0-0.2) 10^3/uL PT (9.3-11.0) sec INR (0.9-1.1) APTT (21.0-27.5) sec Sodium (136-145) mmol/L Potassium (3.5-5.1) mmol/L Chloride (98-107) mmol/L Carbon Dioxide (21.0-32.0) mmol/L Anion Gap (3-11) mmol/L BUN (7-18) mg/dL Creatinine (0.55-1.02) mg/dL Estimated GFR/1.73 m2 (mL/min/1.73m2) Glucose (74-106) mg/dL Calcium (8.5-10.1) mg/dL Magnesium (1.8-2.4) mg/dL Total Bilirubin (0.2-1.0) mg/dL AST (15-37) U/L ALT (14-59) U/L Alkaline Phosphatase (46-116) U/L Troponin I (<0.06) ng/mL < 0.05 Total Protein (6.4-8.2) g/dL Albumin (3.4-5.0) g/dL ECG Data Attestation: I personally reviewed and interpreted this ECG (s) as follows: Interpretation: #1 -- Rate of 76, sinus, no acute ST elevation or depression. CA 144. QRS 93. QTc 463. #2 -- Rate of 73, sinus, no acute ST elevation or depression. CA 146. QRS 87. QTc 449. HPI General Mode of arrival: ambulatory . Date/Time Provider Initiated Documentation: 09/09/20 11:16 . Limitations to Documentation: no limitations . Information obtained by: patient . HPI Narrative: Patient is a 40-year-old female with a history of obesity, chronic fatigue currently being followed by rheumatology at [facility] for potential autoimmune disease and currently being treated with doxycycline for Lyme disease by her surgery technician who presents to the ED for evaluation after an episode of chest pressure and abnormal heart rate detected by her watch at home. Patient states she was sitting in a chair writing when her watch began to go off and it was indicating that her heart rate had dropped. She states her heart rate ranged from 64 to 115bpm over a few hours. Patient admits to some mild left-sided chest pressure at this time. She states the pain does occasionally radiate to her back and is worse with deep breath. She denies any known injury. She denies any fever, cough, shortness of breath, nausea, vomiting or dizziness. Patient states she has had chronic joint pain and fatigue being followed by rheumatology for potential lupus. She states she also had blood work which indicated she was negative for Lyme disease in the fall but was rechecked earlier this month by her surgery technician who stated that she likely was exposed to Lyme and has been taking doxycycline for the past 3 weeks. She does also admits to tingling in head, hands and feet for the past several months that has gotten better since starting the doxycycline. Related Data Home Medications Medication Instructions Recorded Confirmed norgestimate-ethinyl estradiol 1 tab PO DAILY 09/14/19 09/09/20 [Previfem] escitalopram oxalate 10 mg tablet 20 mg PO DAILY tab 05/26/20 09/09/20 ferrous gluconate 256 mg (28 mg 256 mg PO DAILY 05/26/20 09/09/20 iron) tablet omeprazole 20 mg capsule,delayed 20 mg PO DAILY 05/26/20 09/09/20 release doxycycline monohydrate 200 mg PO BID 09/09/20 09/09/20 Allergies Allergy/AdvReac Type Severity Reaction Status Date / Time No Known Allergies Allergy Unverified 09/09/20 11:23 General Stated Complaint: Chest Pain SVITLANA: 2 Review of Systems All systems reviewed & are unremarkable except as noted in HPI and below Constitutional Constitutional: Reports as per HPI, Denies chills and Denies fever(s) Eyes Eyes: Denies blurry vision ENT Ears, Nose, Mouth, and Throat: Denies dizziness, Denies sore throat and Denies throat swelling Cardiovascular Cardiovascular: Reports chest pain and Denies dyspnea Respiratory Respiratory: Denies cough and Denies dyspnea Gastrointestinal Gastrointestinal: Denies abdominal pain, Denies diarrhea and Denies vomiting Genitourinary Genitourinary: Denies hematuria and Denies dysuria Musculoskeletal Musculoskeletal: Denies back pain and Denies numbness Integumentary/Breasts Skin/Breast: Denies lesions and Denies rash Neurologic Neurologic: Denies dizziness, Denies localized weakness and Denies numbness Allergic/Immunologic Allergic/Immunologic: Denies throat swelling [facility] Medical History Anemia, iron deficiency Elevated antinuclear antibody (LIZA) level Elevated C-reactive protein Elevated sedimentation rate Fatigue Frequent sinus infections Headache Heartburn Malaise and fatigue Mood disorder Myalgia Obesity Paresthesia Social History Smoking/Tobacco Use Status: Never Smoking risk assessment performed?: Yes Drug use: Never Substance use type: does not use Do you feel safe at home: Yes Do you feel safe in your relationship?: Yes Exam Const General: cooperative, healthy appearing and no acute distress [facility] Head: normal to inspection Face and sinus: normal facial exam Eyes General: appearance normal, both eyes and all related structures EOM: EOM intact bilaterally Neck Neck: normal visual inspection and No submandibular swelling Lymphatic: no lymphadenopathy noted Chest Chest: normal inspection of the chest and no tenderness Resp Effort & Inspection: normal respiratory effort and able to speak in complete sentences Auscultation: clear to auscultation bilaterally Cardio Rate: regular rate Rhythm: regular rhythm GI Inspection: normal to inspection and obesity Palpation: soft, not firm, not rigid and nontender Auscultation: normal bowel sounds Back/Spine/Pelvis Thoracic/Lumbar Spine: thoracic and lumbar spine normal to inspection Skin General skin exam: no rashes or lesions noted Neuro General: patient alert, patient awake and patient oriented x3 Cognition: normal cognition Speech: speech normal Motor: muscle tone normal throughout Sensory Exam: no sensory deficits noted Extrem General: normal to inspection, full ROM, capillary refill normal, no calf tenderness bilaterally and no edema Psych Appearance: grossly normal Mental Status: mental status grossly normal Speech and Movement: speech and movement normal Affect: normal affect Course Vital Signs Vital signs: Vital Signs Temperature 97.9 F 09/09/20 11:19 Pulse 80 09/09/20 11:19 Respiratory Rate 09/09/20 11:19 Blood Pressure 126/74 09/09/20 11:19 Pulse Oximetry 100 09/09/20 11:19 Temperature 97.9 F 09/09/20 11:19 Temperature Source Skin 09/09/20 11:19 Pulse 80 09/09/20 11:19 Respiratory Rate 09/09/20 11:19 Respiratory Effort Non-Labored 09/09/20 11:29 Blood Pressure 126/74 09/09/20 11:19 Blood Pressure Position Supine 09/09/20 11:19 Pulse Oximetry 100 09/09/20 11:19 Oxygen Delivery Method Room Air 09/09/20 11:19 Oxygen Flow Rate 0 09/09/20 11:19 Pain Level 6 09/09/20 11:19
[2020-09-09 11:50] LABS: Abs Immature Grans 0.03 10^3/uL (0.0-0.06); Absolute Basophil Count 0.05 10^3/uL (0.0-0.2); Absolute Eosinophil Count 0.11 10^3/uL (0.0-0.7); Absolute Lymphocyte Count 1.81 10^3/uL (1.2-3.4); Absolute Monocyte Count 0.53 10^3/uL (0.1-0.8); Absolute Neutrophil Count 5.28 10^3/uL (1.2-6.7); Basophils % 0.6; Eosinophils % 1.4; HCT 44.3 % (36.0-46.0); HGB 13.8 g/dL (11.2-15.7); Immature Grans % 0.4; Lymphocytes % 23.2; MCH 28.2 pg (27.0-33.0); MCHC 31.2 % (32.0-36.0); MCV 90.4 fL (80-95); MPV 11.2 fL (8.0-11.0); Monocytes % 6.8; Neutrophils % 67.6; Nucleated RBC 0 %; Platelet Count 262 10^3/uL (130-400); RDW 14.5 % (11.7-14.6); RDW-SD 48.7 fL; WBC 7.81 10^3/uL (4.4-10.8)
--- NOTE | 2020-09-09 12:00 | DI.CT_ITS ---
EXAM: CT CHEST PE CTA CLINICAL HISTORY: chest pressure, r/o PE. TECHNIQUE: Imaging Protocol: CT angiography of the chest was performed using pulmonary embolus brenda col. Multi planar reconstructions were performed. CONTRAST MATERIAL: Intravenous: Omnipaque 350 Contrast volume: 100 cc COMPARISON: CT CT CHEST PE ABD PELVIS W from 06/17/2020 FINDINGS: CHEST: PULMONARY ARTERIES: There are no intraluminal filling defects to suggest acute pulmonary emboli. LUNGS: Mild benign-appearing increased subpleural markings both lungs. No confluent infiltrates. No ominous pulmonary nodules.. No pleural effusions. No significant focal findings in the trachea and mainstem bronchi. MEDIASTINUM: There is no hilar nor mediastinal adenopathy. Visualized thyroid unremarkable. CARDIAC: Heart size is normal. There is no pericardial effusion.Caliber of the thoracic aorta is wit hin normal limits. There is no evidence of shift of the interventricular septum. PARTIALLY VISUALIZED UPPERMOST ABDOMEN: No obvious findings OSSEOUS: No significant osseous lesions.Scoliosis noted convex right in the thoracic spine.. IMPRESSION: 1. No evidence of acute pulmonary emboli. No evidence of pulmonary infarction.No pleural effusions. 2. No intrathoracic adenopathy evident. 3. Scoliosis convex right noted in the thoracic spinal column. Report called by myself to ER provider. RADIATION DOSE DELIVERED: LINK-TO-SR Total DLP DATA REPOSITORY: All CT scans at this facility are submitted to the National Radiology Data Registry (NRDR) Dose Index Registry (DIR) with the [employer] (A[employer]). RADIATION OPTIMIZATION: All CT scans at this facility use at least one of these dose optimization te chniques: automated exposure control; mA and/or kV adjustment per patient size (includes targeted exa ms where dose is matched to clinical indication); or iterative reconstruction.
[2020-09-09 12:02] LABS: Prothrombin Time 10.2 sec (9.3-11.0)
[2020-09-09 12:16] LABS: ALT 27 U/L (14-59); AST 19 U/L (15-37); Albumin 3.4 g/dL (3.4-5.0); Alkaline Phosphatase 85 U/L (46-116); Anion Gap 9.9 mmol/L (3-11); BUN 10 mg/dL (7-18); Bilirubin, Total 0.4 mg/dL (0.2-1.0); CO2 25.1 mmol/L (21.0-32.0); Chloride 105 mmol/L (98-107); Glucose 112 mg/dL (74-106); Potassium 3.7 mmol/L (3.5-5.1); Sodium 140 mmol/L (136-145); Total Protein 7.6 g/dL (6.4-8.2)
[2020-09-09 12:18] LABS: Troponin I < 0.05 ng/mL (<0.06)
[2020-09-09] MEDS: Ketorolac 30 MG/ML VIAL IVP (12:31)
[2020-09-09] MEDS: Normal Saline 1,000 ML 1000 ML IV (12:32)
[2020-09-09] MEDS: Omnipaque 350 MG/ML 100 ML BTL IJ (12:47)
[2020-09-09] MEDS: Normal Saline - Diluent 50 ML VIAL IV (12:48)
[2020-09-09] MEDS: Normal Saline Flush 10 ML SYR IVP (12:48)
--- NOTE | 2020-09-09 13:15 | RT.EKG_ITS ---
APPROVED REPORT Exam: Resting ECG Patient Location: E HR:73 bpm ECG Measurements Heart Rate 73 AXIS IA 146 P 41 QRSd 87 QRS 16 QT 407 T 24 QTc 449 Conclusion Sinus rhythm...normal P axis, V-rate 60- 99 I have reviewed and interpreted ECG and agree with software generated interpretation.
--- NOTE | 2020-09-09 14:00 | HOLTER_ITS ---
APPROVED REPORT Exam Type: HOLTER MONITOR APPLICATION Patient Location: E [facility] This is a 48-hour monitor ordered for the indication of atypical chest pain. The patient was in normal sinus rhythm for the majority of the recording with an average heart rate o f 77 bpm. There were no episodes of ventricular tachycardia nor any episodes of supraventricular tachycardia. There were rare incidences of ectopy. There were no episodes of atrial fibrillation, no pauses greater than 3 seconds and no evidence of hi gh degree heart block. There were 5 patient triggered events for which were associated with normal sinus rhythm and 1 associ ated with a single PAC.
[2020-09-09 15:10] LABS: Troponin I < 0.05 ng/mL (<0.06)
== END 2020-09-09 15:28 | disposition home or self-care (01) ==
PROVIDERS: Emergency Provider Physician Assistant; PCP Nurse Practitioner Family
DX: R07.89 Other chest pain (principal)
CPT/HCPCS: 71275; 80053; 81025; 93005; 96361; 96374; 99285; 83735; 84484; 85025; 85610; 85730; 93010; 93225; 99283; J1885; J3490

== ENCOUNTER 2020-09-09 14:03 | Outpatient (RCR) | payer OTHER, SELFPAY | END 2020-09-09 23:59 | disposition home or self-care (01) | LOC: RT 14:03 | PROVIDERS: PCP Nurse Practitioner Family; Visit Provider Nurse Practitioner Family | DX: R07.89 Other chest pain (principal) | CPT/HCPCS: 93225; 93226 ==

== ENCOUNTER 2020-10-27 03:33 | Outpatient (CLI) | payer OTHER, SELFPAY ==
--- NOTE | 2020-11-12 08:43 | W.ZIOMONITOR ---
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 ?The patient was in normal sinus rhythm for the majority of the recording with an average heart rate of 81 bpm. ?There was 1 brief episode of SVT lasting 4 beats. This was symptomatic. There were rare PACs. ?There was one episode of NSVT lasting 6 beats. This was not symptomatic. There were rare PVCs. ?There were no episodes of atrial fibrillation, no pauses greater than 3 seconds and no evidence of high degree heart block. ?There were 47 patient triggered events. 46 of these 47 triggers were not associated with arrhythmia. The one association was with the 4 beat run of SVT as above.
== END 2020-10-27 03:34 | disposition home or self-care (01) ==
LOC: RT 03:33
PROVIDERS: PCP Nurse Practitioner Family; Visit Provider Nurse Practitioner Family
DX: I49.9 Cardiac arrhythmia, unspecified (principal); R07.89 Other chest pain; I47.1 Supraventricular tachycardia; I47.2 Ventricular tachycardia
CPT/HCPCS: 93246

== ENCOUNTER 2021-01-19 17:51 | Outpatient (REF) | payer OTHER, SELFPAY ==
[2021-01-19 20:38] LABS: Abs Immature Grans 0.02 10^3/uL (0.0-0.06); Absolute Basophil Count 0.05 10^3/uL (0.0-0.2); Absolute Eosinophil Count 0.11 10^3/uL (0.0-0.7); Absolute Lymphocyte Count 1.36 10^3/uL (1.2-3.4); Absolute Monocyte Count 0.63 10^3/uL (0.1-0.8); Absolute Neutrophil Count 5.34 10^3/uL (1.2-6.7); Basophils % 0.7; Eosinophils % 1.5; HCT 44.7 % (36.0-46.0); Immature Grans % 0.3; Lymphocytes % 18.1; MCH 28.3 pg (27.0-33.0); MCHC 31.3 % (32.0-36.0); MCV 90.5 fL (80-95); Monocytes % 8.4; Nucleated RBC 0 %; Platelet Count 241 10^3/uL (130-400); RBC 4.94 10^6/uL (3.93-5.22); RDW 14.1 % (11.7-14.6); RDW-SD 46.8 fL; WBC 7.51 10^3/uL (4.4-10.8)
[2021-01-19 20:48] LABS: Iron 58 ug/dL (50-170); Total Iron Binding Capacity 427 ug/dL (250-450); Transferrin Sat 14 % (15-50)
[2021-01-19 21:02] LABS: ESR 16 mm/hr (0-20)
[2021-01-19 21:15] LABS: Ferritin 27 ng/mL (8-252); Magnesium 2.1 mg/dL (1.8-2.4); Vitamin B12 1014 pg/mL (193-986)
[2021-01-19 22:22] LABS: C-Reactive Protein 1.63 mg/dL (0.0-0.3)
[2021-01-21 01:28] LABS: Vitamin D 25 Total 31.6 ng/mL (30-100)
== END 2021-01-19 17:52 | disposition home or self-care (01) ==
LOC: NCHCN 17:51
PROVIDERS: PCP Nurse Practitioner Family; Visit Provider Nurse Practitioner Family
DX: D50.9 Iron deficiency anemia, unspecified (principal); M79.18 Myalgia, other site; R11.0 Nausea; E55.9 Vitamin D deficiency, unspecified; R76.0 Raised antibody titer; E66.9 Obesity, unspecified
CPT/HCPCS: 82306; 85652; 82607; 82728; 83540; 83550; 83735; 85025; 86140

== ENCOUNTER 2022-01-31 10:07 | Outpatient (REF) | payer OTHER, SELFPAY ==
[2022-01-31 15:22] LABS: Abs Immature Grans 0.02 10^3/uL (0.0-0.06); Absolute Basophil Count 0.06 10^3/uL (0.0-0.2); Absolute Eosinophil Count 0.11 10^3/uL (0.0-0.7); Absolute Neutrophil Count 4.03 10^3/uL (1.2-6.7); Eosinophils % 1.8; HCT 41.7 % (36.0-46.0); HGB 13.1 g/dL (11.2-15.7); Immature Grans % 0.3; Lymphocytes % 21.6; MCH 27.2 pg (27.0-33.0); MCHC 31.4 % (32.0-36.0); MCV 87 fL (80-95); MPV 12.5 fL (8.0-11.0); Monocytes % 8.3; Platelet Count 241 10^3/uL (130-400); RBC 4.81 10^6/uL (3.93-5.22); RDW 15.1 % (11.7-14.6); RDW-SD 48.1 fL; WBC 6.02 10^3/uL (4.4-10.8)
[2022-01-31 15:47] LABS: Iron 55 ug/dL (50-170); Total Iron Binding Capacity 509 ug/dL (250-450); Transferrin Sat 11 % (15-50)
[2022-01-31 15:54] LABS: Vitamin D 25 Total 36.8 ng/mL (30-100)
[2022-01-31 15:58] LABS: Ferritin 11 ng/mL (8-252); Magnesium 1.9 mg/dL (1.8-2.4); TSH (W/Ref FT4) 2.48 uIU/mL (0.36-3.74); Vitamin B12 846 pg/mL (193-986)
== END 2022-01-31 10:08 | disposition home or self-care (01) ==
LOC: NCHCN 10:07
PROVIDERS: PCP Nurse Practitioner Family; Visit Provider Nurse Practitioner Family
DX: E55.9 Vitamin D deficiency, unspecified (principal); R53.83 Other fatigue; K59.00 Constipation, unspecified; R06.09 Other forms of dyspnea; M79.10 Myalgia, unspecified site
CPT/HCPCS: 82306; 82607; 82728; 83540; 83550; 83735; 84443; 85025

== ENCOUNTER 2023-01-17 11:49 | Outpatient (REF) | payer OTHER, SELFPAY ==
--- NOTE | 2023-01-17 11:00 | SKI_PTH ---
PATIENT: Latesha Gibson LOC: NCN #:[id number] AGE/SX: 42/F ROOM: RE01/17/[address]: Beth Pickett : 1980 BED: DIS: 01/17/2023 SPEC #: [id number] RECD: 01/17/23 17:58 STATUS: RANJEET NUNEZ #: [id number] FABIOLA: 01/17/23 11:[address]: Beth Pickett DEPT: Surgical Specimen RECD BY: Lauren Alonso Tissues: 1 - SKIN BIOPSY(SHAVE/PUNCH) 2 - SKIN BIOPSY(SHAVE/PUNCH) Procedures: SKIN LEVEL 4 Comments: [id number]
--- OUTSIDE RECORDS SUMMARY | 2023-01-17 11:55 | XMS_ITS | Continuity of Care Document ---
Author Name Unknown Organization [facility] Address [address] [place] [address] Care Team Providers Care Director Of Physical Education Name Role Phone HERNÁN ALLRED APRN Primary Care Physician Encounter [facility] NBR [id number] Date(s): 09/23/22 - 09/23/22 [facility] [address] [place] [address] us Encounter Diagnosis Breast cancer screening by mammogram(Discharge Diagnosis) - 09/23/22 Family planning, BCP maintenance(Discharge Diagnosis) - 09/23/22 Women's annual routine gynecological examination(Discharge Diagnosis) - 09/23/22 Cervical ectropion(Discharge Diagnosis) - 09/23/22 Decreased sex drive(Discharge Diagnosis) - 09/23/22 Discharge Disposition: Home or Self Care Attending Physician: Adebayo Guajardo MD, FACOG Allergies, Adverse Reactions, Alerts No Known Allergies Assessment and Plan Future Appointments Future Scheduled Tests Radiology* MG Mammo Screening Bilateral 09/23/22 Functional Status 09/23/22 Other exposure to Infectious Disease Non e Medications escitalopram 20 mg oral tablet 90 EA, TAKE ONE TABLET BY MOUTH EVERY DAY, 0 Refill(s) Start Date: 09/21/22 Status: Ordered fluticasone 50 mcg/inh nasal spray 1 sprays, Nasal, every morning, 0 Refill(s) Start Date: 09/21/22 Status: Ordered gabapentin 300 mg oral capsule 300 mg = 1 cap, Oral, every day at bedtime, # 30 cap, 0 Refill(s) Start Date: 09/23/22 Status: Ordered hydroxychloroquine 200 mg oral tablet 180 EA, TAKE TWO TABLETS BY MOUTH EVERY DAY, 0 Refill(s) Start Date: 09/21/22 Status: Ordered ibuprofen 200 mg oral tablet See Instructions, 1 tab Oral as directed, 0 Refill(s) Start Date: 09/21/22 Status: Ordered methylPREDNISolone 4 mg oral tablet 28 EA, TAKE FOUR TABLETS BY MOUTH EVERY DAY FOR 4 DAYS AFTER BREAKFAST, THEN 3 TABLETS DAILY AFTER BREAKFAST FOR 4 DAYS, 0 Refill(s) Start Date: 09/21/22 Status: Ordered omeprazole 20 mg oral delayed release capsule 90 EA, TAKE ONE CAPSULE BY MOUTH EVERY DAY, 0 Refill(s) Start Date: 09/21/22 Status: Ordered Vitamin B Complex oral capsule 1 cap, Oral, Daily, # 30 cap, 0 Refill(s) Start Date: 09/21/22 Status: Ordered Vitamin D3 5000 intl units oral capsule 125 mcg = 1 cap, Oral, Daily, with food, # 100 cap, 0 Refill(s) Start Date: 09/21/22 Status: Ordered Arlin 3 mg-0.03 mg oral tablet 1 tab, Oral, Daily, # 84 tab, 3 Refill(s), Pharmacy: [id number] Start Date: 09/23/22 Status: Ordered Arlin 3 mg-0.03 mg oral tablet 1 tab, Oral, Daily, # 84 tab, 3 Refill(s) Start Date: 04/20/22 Status: Ordered Arlin 3 mg-0.03 mg oral tablet 1 tab, Oral, Daily, # 84 tab, 3 Refill(s) Start Date: 04/20/22 Status: Ordered Problem List Condition Confirmation Course Effective Dates Status Health St atus Informant Anxiety Confirmed Active Depression Confirmed Active Cervical ectropion Confirmed Active Headache Confirmed Active Heartburn Confirmed Active Iron deficiency Confirmed Active Moderate mood disorder Confirmed Active Neuropathy Confirmed Active Paresthesia Confirmed Active Pruritus Confirmed Active Radicular pain Confirmed Active Decreased sex drive Confirmed Active Procedures Procedure Date Related Diagnosis Body Site Status History of colonoscopy 2017 Completed History of laparoscopy Co mpleted 1no polyps Vital Signs Most recent to oldest [Reference Range]: 1 Blood Pressure [90-140/60-90 mmHg] 132/7 8mmHg (09/23/22 3:05 PM) Weight 101.7 kg (09/23/22 3:05 PM) Weight Measured (lbs) 224.21 lb (09/23/22 3:05 PM) [place] Body Weight Calculated 63.9 kg (09/23/22 3:05 PM) Height 172.72 cm (09/23/22 3:05 PM) Height/Length Measured (inches) 68 inch (09/23/22 3:05 PM) BSA Measured 2.21 m2 (09/23/22 3:05 PM) Body Mass Index 34.09 kg/m2 (09/23/22 3:05 PM) Social History Social History Type Response Tobacco Never tobacco user T obacco Use:. Sex Female Hospital Discharge Instructions Follow Up Care 05/16/2022 00:48:05 With:HERNÁN ALLRED APRN Address: [address] [place] [address]- When: Unknown Physician Outpatient Note * Adebayo Guajardo MD, FACOG: PERFORM Event Display: Office Clinic Note Physician Authored Date: [id number] GOSS[place]OLD :1980 Age:42 years Sex:Female Visit Date:09/23/2022 Primary Care Physician: HERNÁN ALLRED APRN Chief Complaint Well Woman Exam. Switched OCP 2 months ago which has helped spotting but still has light spotting after intercourse. LMP 09/14/2022. Last mammo done 07/23/2020-Cat 1. History of Present Illness Periods flow 4 days but less BTB- still after sex.?? Some decrease libido. No GONZALEZ. Review of Systems NS- on meds for moods and seems to be good.?? CV- negative.?? Resp- nonsmoker. GI neg.?? - see HPI.?? MS- neg. Physical Exam Vitals & Measurements BP:??132/78?? HT:??172.72??cm?? WT:??101.7??kg?? BMI:??34.09?? BSA:??2.21?? HEENT- benign, no hirsutism or acne.?? Thyroid not palpable.?? LN's negative axillary or supraclavicular. Breast homogeneous with no grave changes.?? Abdomen soft, no hepatosplenomegaly, tenderness, or rebound.?? BS active.?? Vulva normal.?? Vagina with cystourethrocele. [place] epithelium., Cervix with small ectropion.?? Uterus mobile, midposition, nontender.?? Adnexa without palpable mass or tenderness.?? Rectal negative.?? Extremities benign.?? Assessment/Plan 1.??Breast cancer screening by mammogram??Z12.31 Mammogram ordered. Ordered: MG Mammo Screening Bilateral, 09/23/22, Routine, Reason: breast cancer screening, [facility], Transport Mode: Ambulatory, Breast cancer screening by mammogram ?? 2.??Family planning, BCP maintenance??Z30.41 Remain on the present BCP's.? 3.??Decreased sex drive??R68.[address] not so great but on antidepressants, BCP's and??has autoimmune disease all of which mightcontribute??to etiology. Communication helps. ?? 4.??Cervical ectropion??N86 Noted. ?? 5.??Women's annual routine gynecological examination??Z01.419 Will see if she can get annual sail finisher machine care with Hernán Allred in future since I am retiring.?? Appt made with Dr. Haynes for next year. ?? Orders: Arlin 3 mg-0.03 mg oral tablet, 1 tab, Oral, Daily, # 84 tab, 3 Refill(s), Pharmacy: [id number] Refilled. Future Orders MG Mammo Screening Bilateral, 09/23/22, Routine, Reason: breast cancer screening, [facility], Transport Mode: Ambulatory, Breast cancer screening by mammogram Follow Up Instructions With When Contact Information HERNÁN ALLRED APRN [address] [place] [address]- Additional Instructions: Problem List/Past Medical History Ongoing Anxiety Cervical ectropion Decreased sex drive Depression Headache Heartburn Iron deficiency Moderate mood disorder Neuropathy Paresthesia Pruritus Radicular pain Historical Procedure/Surgical History ???History of colonoscopy (2018)???History of laparoscopy Medications escitalopram 20 mg oral tablet fluticasone 50 mcg/inh nasal spray, 1 sprays, Nasal, every morning gabapentin 300 mg oral capsule, 300 mg= 1 cap, Oral, every night at bedtime hydroxychloroquine 200 mg oral tablet ibuprofen 200 mg oral tablet, See Instructions methylPREDNISolone 4 mg oral tablet omeprazole 20 mg oral delayed release capsule Vitamin B Complex oral capsule, 1 cap, Oral, Daily Vitamin D3 5000 intl units oral capsule, 125 mcg= 1 cap, Oral, Daily Arlin 3 mg-0.03 mg oral tablet, 1 tab, Oral, Daily, 3 refills Arlin 3 mg-0.03 mg oral tablet, 1 tab, Oral, Daily, 3 refills Arlin 3 mg-0.03 mg oral tablet, 1 tab, Oral, Daily Allergies No Known Allergies Social History Alcohol Current, 1-2 times per week- Comments: 2 drinks Electronic Cigarette/Vaping Electronic Cigarette Use: Never. Employment/School Employed, Work/School description: Supply Chain Admin. Exercise Exercise type: Weight lifting.- Comments: jogging Home/Environment Lives with Children, Spouse. Living situation: Home/Independent. Sexual Sexually active: Yes. Substance Use Never Tobacco Never tobacco user Tobacco Use:. Family History Anxiety: Father. Arthritis: Mother. Diabetes mellitus: Mother. Diverticulitis: Father. Endometriosis: Sister. Hypertension: Father. PTSD - Post-traumatic stress disorder: Sister. Electronically Signed on 09/23/22 03:51 PM Adebayo Guajardo MD, FACOG Patient Care team information Care Team Personnel Name: HERNÁN ALLRED APRN Position: No Access Member Role: Primary Care Physician Address: Address: [address] [place] [id number] [place] [address] Name: Adebayo Guajardo MD, FACOG Position: Physician - Women's Health Member Role: BUILDING DRAFTING OFFICER Physician Address: Address: [address] [place] [address] Care Team Related Persons Name: SALOME SHEFFIELD Address: Home [address] [place] [address] [place] Name: JANNETH SHEFFIELD Name: DESTIN GOSS Address: Home [address] [id number] [facility]
--- OUTSIDE RECORDS SUMMARY | 2023-01-17 11:55 | XMS_ITS | Continuity of Care Document ---
Author Name Unknown Organization [facility] Address [address] [place] [phone] Care Team Providers Care Customer Support Coordinator Name Role Phone HERNÁN ALLRED APRN Primary Care Physician [phone] Encounter [facility] NBR [id number] Date(s): 09/26/22 - 09/26/22 [facility] [address] [place] [address]- [place] Discharge Disposition: Home Allergies, Adverse Reactions, Alerts No Known Allergies Assessment and Plan Future Appointments Future Scheduled Tests Radiology* MG Mammo Screening Bilateral 10/11/22 Medications escitalopram 20 mg oral tablet 90 [...] Daily, # 84 tab, 3 Refill(s), Pharmacy: [id number] Start Date: 09/23/22 Status: Ordered Arlin [...] History of laparoscopy Co mpleted 1no polyps Social History Social History Type Response Tobacco Never tobacco user T obacco Use:. Sex Female Patient Care team information Care Team Personnel Name: HERNÁN ALLRED APRN Position: No Access Member Role: Primary Care Physician Address: Address: [address] [place] [address] Name: Adebayo Guajardo MD, FACOG Position: Physician - Women's Health Member Role: STONE DECORATOR Physician Address: Address: [address] [place] [address] Care Team Related Persons Name: SALOME SHEFFIELD Address: Home [address] [place] [address] [facility] [[email or web address]] Name: SALOME SHEFFIELD Address: Home [address] [place], [place] [id number] [facility] [[email or web address]] Name: JANNETH SHEFFIELD Name: DESTIN GOSS Address: Home [address] [place], [place] [id number] [place]
--- OUTSIDE RECORDS SUMMARY | 2023-01-17 11:55 | XMS_ITS | Continuity of Care Document ---
Author Name Unknown Organization [facility] Address [address] [place] [address] Care Team Providers Care Contract Clerk Name Role Phone HERNÁN ALLRED APRN Primary Care Physician Encounter [facility] NBR [id number] Date(s): 10/11/22 - 10/11/22 [facility] [address] [place] [address] [place] Encounter Diagnosis Encounter for screening mammogram for malignant neoplasm of breast(Final) - Discharge Disposition: Home or Self Care Attending Physician: Adebayo Guajardo MD, FACOG Admitting Physician: Adebayo Guajardo MD, FACOG Allergies, Adverse Reactions, Alerts No Known Allergies Assessment and Plan Future Appointments Medications escitalopram 20 mg oral tablet 90 [...] Daily, # 84 tab, 3 Refill(s), Pharmacy: [facility] #[id number] Start Date: 09/23/22 Status: Ordered Arlin [...] History of laparoscopy Co mpleted 1no polyps Results Radiology Reports * Exam Date Time Procedure Performing Provider Status 10/11/22 3:35 PM MG Mammo Screening Bilateral [place], An na; Auth (Verified) Notes: (MG Mammo Screening Bilateral) Reason For Exam: breast cancer screening MG Mammo Screening Bilateral EXAM DESCRIPTION: MG Mammo Screening Bilateral 10/11/2022 INDICATION: BREAST CANCER SCREENING COMPARISON: 07/23/2020 BREAST DENSITY: The breasts are heterogeneously dense which may obscure small masses. FINDINGS: MLO and CC views were performed with digital breast tomosynthesis. Images were reviewed using computer aided detection. No asymmetry, architectural distortion or suspicious grouping of calcifications to suggest malignancy in either breast. ASSESSMENT: No mammographic evidence of malignancy. Negative. BI-RADS category 1. RECOMMENDATION: Screening mammography in 1 year JOB #: [id number] Final Signed by: Librado Harris MD Signed (Electronic Signature): 10/11/2022 3:40 pm Social History Social History Type Response Tobacco Never tobacco user T obacco Use:. Sex Female MG Breast - bilateral Screening * Librado Harris MD: VERIFY, VERIFY Event Display: Report EXAM DESCRIPTION: MG Mammo Screening Bilateral 10/11/2022 INDICATION: BREAST CANCER SCREENING COMPARISON: 07/23/2020 BREAST DENSITY: The breasts are heterogeneously dense which may obscure small masses. FINDINGS: MLO and CC views were performed with digital breast tomosynthesis. Images were reviewed using computer aided detection. No asymmetry, architectural distortion or suspicious grouping of calcifications to suggest malignancy in either breast. ASSESSMENT: No mammographic evidence of malignancy. Negative. BI-RADS category 1. RECOMMENDATION: Screening mammography in 1 year JOB #: [id number] Final Signed by: Librado Harris MD Signed (Electronic Signature): 10/11/2022 3:40 pm Patient Care team information Care Team Personnel Name: HERNÁN ALLRED APRN Position: No Access Member Role: Primary Care Physician Address: Address: [address] [place] [phone] [place] Name: Adebayo Guajardo MD, FACOG Position: Physician - Women's Health Member Role: MEDICAL RECEPTIONIST Physician Address: Address: [address] [place] [phone] [place] Care Team Related Persons Name: SALOME SHEFFIELD Address: Home [address] [place], [place] [id number] [facility] Name: SALOME SHEFFIELD Address: Home [address] [place] [address] [facility] Name: JANNETH SHEFFIELD Name: DESTIN GOSS Address: Home [facility] [place], [place] [id number] [facility]
--- OUTSIDE RECORDS SUMMARY | 2023-01-17 11:55 | XMS_ITS | Continuity of Care Document ---
Author Name Unknown Organization [facility] Address [address] [place] [address] Care Team Providers Care Tools And Parts Attendant Name Role Phone HERNÁN ALLRED APRN Primary Care Physician Encounter [facility] [facility] NBR [id number] Date(s): 09/26/22 - 09/26/22 [facility] [address] [place] [address] [place] Discharge Disposition: Home Allergies, [...] Daily, # 84 tab, 3 Refill(s), Pharmacy: [email or web address] Start Date: 09/23/22 Status: Ordered Arlin [...] Care team information Care Team Personnel Name: HRENÁN ALLRED APRN Position: No Access Member Role: Primary Care Physician Address: Address: [address] [place] [address] Name: Adebayo Guajardo MD, FACOG Position: Physician - Women's Health Member Role: FUNERAL DIRECTOR/EMBALMER Physician Address: Address: [address] [place] [address] Care Team Related Persons Name: SALOME SHEFFIELD Address: Home [address] [place], [place] [id number] [facility] Name: SALOME SHEFFIELD Address: Home [address] [place] [address] [facility] Name: JANNETH SHEFFIELD Name: DESTIN GOSS Address: Home [address] [place], [place] [id number] [facility]
== END 2023-01-17 11:50 | disposition home or self-care (01) ==
LOC: NCHCN 11:49
PROVIDERS: PCP Nurse Practitioner Family; Visit Provider Nurse Practitioner Family
DX: B07.9 Viral wart, unspecified (principal); L82.1 Other seborrheic keratosis
CPT/HCPCS: 88305

== ENCOUNTER 2023-03-23 13:35 | Outpatient (CLI) | payer OTHER, SELFPAY ==
[2023-03-23 10:12] LABS: Abs Immature Grans 0.01 10^3/uL (0.0-0.06); Absolute Basophil Count 0.05 10^3/uL (0.0-0.2); Absolute Eosinophil Count 0.09 10^3/uL (0.0-0.7); Absolute Lymphocyte Count 1.35 10^3/uL (1.2-3.4); Absolute Monocyte Count 0.53 10^3/uL (0.1-0.8); Absolute Neutrophil Count 4.46 10^3/uL (1.2-6.7); Basophils % 0.8; Eosinophils % 1.4; HCT 42.2 % (36.0-46.0); HGB 13.6 g/dL (11.2-15.7); Immature Grans % 0.2; Lymphocytes % 20.8; MCHC 32.2 % (32.0-36.0); MCV 84 fL (80-95); Monocytes % 8.2; Neutrophils % 68.6; Platelet Count 268 10^3/uL (130-400); RBC 5.04 10^6/uL (3.93-5.22); RDW 15.4 % (11.7-14.6); RDW-SD 46.9 fL; WBC 6.49 10^3/uL (4.4-10.8)
[2023-03-23 10:53] LABS: D-Dimer 429 ng/mlFEU (<500)
[2023-03-23 10:54] LABS: ALT 30 U/L (14-59); AST 17 U/L (15-37); Alkaline Phosphatase 75 U/L (46-116); Anion Gap 6.3 mmol/L (3-11); BUN 10 mg/dL (7-18); Bilirubin, Total 0.2 mg/dL (0.2-1.0); CO2 25.7 mmol/L (21.0-32.0); CREATININE 0.9 mg/dL (0.55-1.02); Calcium 9.2 mg/dL (8.5-10.1); Chloride 105 mmol/L (98-107); Estimated GFR 81.35 (mL/min/1.73m2); Folate 5.4 ng/mL (8.6-20.0); Glucose 91 mg/dL (74-106); Magnesium 2.1 mg/dL (1.8-2.4); Sodium 137 mmol/L (136-145); TSH (W/Ref FT4) 2.34 uIU/mL (0.36-3.74); Vitamin B12 502 pg/mL (193-986)
[2023-03-23 11:25] LABS: Iron 74 ug/dL (50-170); Total Iron Binding Capacity 506 ug/dL (250-450); Transferrin Sat 15 % (15-50)
[2023-03-23 11:34] LABS: C-Reactive Protein 0.79 mg/dL (0.0-0.3)
[2023-03-23 12:26] LABS: ESR (LRH) 26 mm/hr
[2023-03-23 20:12] LABS: Ferritin 11 ng/mL (8-252)
== END 2023-03-23 13:36 | disposition home or self-care (01) ==
LOC: LBO 13:35
PROVIDERS: PCP Nurse Practitioner Family; Visit Provider Nurse Practitioner Family
DX: D52.0 Dietary folate deficiency anemia (principal); R07.89 Other chest pain; M35.9 Systemic involvement of connective tissue, unspecified; R06.09 Other forms of dyspnea
CPT/HCPCS: 36415; 80053; 85652; 82607; 82728; 82746; 83540; 83550; 83735; 84443; 85025; 85379; 86140

== ENCOUNTER 2023-04-06 04:02 | Outpatient (CLI) | payer OTHER, SELFPAY ==
[2023-04-06 14:19] LABS: Abs Immature Grans 0.04 10^3/uL (0.0-0.06); Absolute Basophil Count 0.06 10^3/uL (0.0-0.2); Absolute Eosinophil Count 0.15 10^3/uL (0.0-0.7); Absolute Lymphocyte Count 1.95 10^3/uL (1.2-3.4); Absolute Neutrophil Count 7.84 10^3/uL (1.2-6.7); Basophils % 0.6; Eosinophils % 1.4; HCT 40.3 % (36.0-46.0); HGB 12.6 g/dL (11.2-15.7); Immature Grans % 0.4; Lymphocytes % 18.2; MCH 26.3 pg (27.0-33.0); MCHC 31.3 % (32.0-36.0); MCV 84 fL (80-95); MPV 10.5 fL (8.0-11.0); Monocytes % 6.5; Neutrophils % 72.9; Platelet Count 264 10^3/uL (130-400); RBC 4.79 10^6/uL (3.93-5.22); RDW 15.2 % (11.7-14.6); RDW-SD 46.3 fL; WBC 10.74 10^3/uL (4.4-10.8)
[2023-04-06 15:07] LABS: ALT 23 U/L (14-59); AST 16 U/L (15-37); Albumin 3.1 g/dL (3.4-5.0); Alkaline Phosphatase 79 U/L (46-116); BUN 12 mg/dL (7-18); Bilirubin, Total 0.2 mg/dL (0.2-1.0); C-Reactive Protein 1.11 mg/dL (0.0-0.3); CREATININE 0.9 mg/dL (0.55-1.02); Calcium 8.8 mg/dL (8.5-10.1); Chloride 106 mmol/L (98-107); Estimated GFR 81.35 (mL/min/1.73m2); Glucose 126 mg/dL (74-106); Potassium 3.5 mmol/L (3.5-5.1); Sodium 136 mmol/L (136-145); Total Protein 6.7 g/dL (6.4-8.2)
== END 2023-04-06 04:03 | disposition home or self-care (01) ==
LOC: LBO 04:03
PROVIDERS: PCP Nurse Practitioner Family; Visit Provider Internal Medicine
DX: M35.9 Systemic involvement of connective tissue, unspecified (principal)
CPT/HCPCS: 36415; 80053; 85025; 86140

== ENCOUNTER 2023-07-03 22:32 | Outpatient (REF) | payer BC, SELFPAY ==
[2023-07-03 22:30] LABS: ALT 18 U/L (14-59); AST 20 U/L (15-37); Albumin 3.2 g/dL (3.4-5.0); Alkaline Phosphatase 78 U/L (46-116); Anion Gap 9.6 mmol/L (3-11); BUN 11 mg/dL (7-18); Bilirubin, Total 0.3 mg/dL (0.2-1.0); CO2 26.4 mmol/L (21.0-32.0); Calcium 9.3 mg/dL (8.5-10.1); Chloride 105 mmol/L (98-107); Estimated GFR 71.24 (mL/min/1.73m2); Glucose 90 mg/dL (74-106); Potassium 4.3 mmol/L (3.5-5.1); Sodium 141 mmol/L (136-145); TSH (W/Ref FT4) 2.92 uIU/mL (0.36-3.74); Total Protein 7.3 g/dL (6.4-8.2)
== END 2023-07-03 22:33 | disposition home or self-care (01) ==
LOC: NCHCN 22:32
PROVIDERS: PCP Nurse Practitioner Family; Visit Provider Nurse Practitioner Family
DX: R00.0 Tachycardia, unspecified (principal)
CPT/HCPCS: 80053; 84443

== ENCOUNTER 2023-07-14 08:27 | Outpatient (CLI) | payer BC, SELFPAY | END 2023-07-14 08:28 | disposition home or self-care (01) | PROVIDERS: PCP Nurse Practitioner Family; Visit Provider Nurse Practitioner Family | DX: R00.0 Tachycardia, unspecified (principal) | CPT/HCPCS: 93246 ==

== ENCOUNTER 2023-08-08 07:29 | Outpatient (CLI) | payer BC, SELFPAY ==
--- NOTE | 2023-08-08 08:29 | W.CARDEVENT ---
Date of service: 08/08/23 Time of Service: 08:29 Cardiac Event Recorder Referring Provider:: Beth Pickett Indications:: Tachycardia Cardiac Event Note: This is a cardiac event monitor ordered for tachycardia. Patient was monitored for 13 days and 20 hours Rhythm throughout was sinus with an average heart rate of 85. Minimum was 59, maximum 157. There were rare isolated atrial and ventricular ectopic beats There was no atrial fibrillation, no SVT, no high-grade AV block, no pauses greater than 3 seconds Patient symptoms did not correlate to any dysrhythmia
== END 2023-08-08 07:30 | disposition home or self-care (01) ==
LOC: CARDOPNVT 07:29
PROVIDERS: PCP Nurse Practitioner Family; Visit Provider Internal Medicine Cardiovascular Disease
DX: R00.0 Tachycardia, unspecified (principal)

== ENCOUNTER 2023-09-26 04:03 | Outpatient (CLI) | payer BC, SELFPAY ==
[2023-09-26 16:10] LABS: Abs Immature Grans 0.02 10^3/uL (0.0-0.06); Absolute Basophil Count 0.06 10^3/uL (0.0-0.2); Absolute Eosinophil Count 0.13 10^3/uL (0.0-0.7); Absolute Lymphocyte Count 1.97 10^3/uL (1.2-3.4); Absolute Monocyte Count 0.76 10^3/uL (0.1-0.8); Absolute Neutrophil Count 6.53 10^3/uL (1.2-6.7); Basophils % 0.6; ESR 10 mm/hr (0-20); Eosinophils % 1.4; HCT 42.1 % (36.0-46.0); HGB 13.4 g/dL (11.2-15.7); Immature Grans % 0.2; Lymphocytes % 20.8; MCH 26.9 pg (27.0-33.0); MCHC 31.8 % (32.0-36.0); MCV 85 fL (80-95); MPV 11.6 fL (8.0-11.0); Platelet Count 255 10^3/uL (130-400); RBC 4.98 10^6/uL (3.93-5.22); RDW 15.3 % (11.7-14.6); RDW-SD 46.4 fL; WBC 9.47 10^3/uL (4.4-10.8)
[2023-09-26 17:38] LABS: ALT 26 U/L (14-59); AST 19 U/L (15-37); Albumin 3.4 g/dL (3.4-5.0); Alkaline Phosphatase 93 U/L (46-116); Anion Gap 11.1 mmol/L (3-11); BUN 10 mg/dL (7-18); Bilirubin, Total 0.2 mg/dL (0.2-1.0); C-Reactive Protein 1.16 mg/dL (<or=0.5); CO2 24.9 mmol/L (21.0-32.0); CREATININE 0.9 mg/dL (0.55-1.02); Calcium 8.8 mg/dL (8.5-10.1); Chloride 105 mmol/L (98-107); Estimated GFR 80.84 (mL/min/1.73m2); Glucose 86 mg/dL (74-106); Potassium 4.1 mmol/L (3.5-5.1); Sodium 141 mmol/L (136-145); Total Protein 7.1 g/dL (6.4-8.2)
== END 2023-09-26 04:04 | disposition home or self-care (01) ==
LOC: LBO 04:03
PROVIDERS: PCP Nurse Practitioner Family; Visit Provider Internal Medicine
DX: M35.9 Systemic involvement of connective tissue, unspecified (principal)
CPT/HCPCS: 36415; 80053; 85652; 85025; 86140

== ENCOUNTER 2024-01-23 02:41 | Outpatient (CLI) | payer BC, SELFPAY ==
[2024-01-23 17:10] LABS: Abs Immature Grans 0.03 10^3/uL (0.0-0.06); Absolute Basophil Count 0.06 10^3/uL (0.0-0.2); Absolute Eosinophil Count 0.21 10^3/uL (0.0-0.7); Absolute Lymphocyte Count 2.06 10^3/uL (1.2-3.4); Absolute Monocyte Count 0.82 10^3/uL (0.1-0.8); Absolute Neutrophil Count 5.68 10^3/uL (1.2-6.7); Basophils % 0.7 %; Eosinophils % 2.4 %; HCT 42.2 % (36.0-46.0); HGB 13.6 g/dL (11.2-15.7); Immature Grans % 0.3 %; Lymphocytes % 23.3 %; MCH 27.8 pg (27.0-33.0); MCHC 32.2 % (32.0-36.0); MCV 86 fL (80-95); MPV 12.5 fL (8.0-11.0); Monocytes % 9.3 %; Platelet Count 232 10^3/uL (130-400); RDW 15.2 % (11.7-14.6); RDW-SD 47.6 fL; WBC 8.86 10^3/uL (4.4-10.8)
[2024-01-23 17:12] LABS: ESR 11 mm/hr (0-20)
[2024-01-23 17:50] LABS: ALT 27 U/L (14-59); AST 20 U/L (15-37); Albumin 3.2 g/dL (3.4-5.0); Alkaline Phosphatase 79 U/L (46-116); Anion Gap 12.7 mmol/L (3-11); BUN 9 mg/dL (7-18); Bilirubin, Total 0.22 mg/dL (0.2-1.0); C-Reactive Protein 0.97 mg/dL (<or=0.5); CO2 22.3 mmol/L (21.0-32.0); CREATININE 0.8 mg/dL (0.55-1.02); Chloride 105 mmol/L (98-107); Estimated GFR 93.12 (mL/min/1.73m2); Glucose 87 mg/dL (74-106); Potassium 4.1 mmol/L (3.5-5.1); Sodium 140 mmol/L (136-145); Total Protein 6.8 g/dL (6.4-8.2)
[2024-01-23 18:11] LABS: Calculated LDL 104 mg/dL (<100); Cholesterol 204 mg/dL (<200); HDL Cholesterol 80 mg/dL (40-60); Magnesium 2.1 mg/dL (1.8-2.4); Triglyceride 104 mg/dL (<150); Vitamin B12 427 pg/mL (193-986)
[2024-01-23 18:13] LABS: Folate > 20.0 ng/mL (8.6-20.0)
[2024-01-23 18:16] LABS: Hemoglobin A1C 5.3 % (<5.7)
== END 2024-01-23 02:42 | disposition home or self-care (01) ==
LOC: LBO 02:41
PROVIDERS: PCP Nurse Practitioner Family; Visit Provider Internal Medicine
DX: E53.8 Deficiency of other specified B group vitamins (principal); E66.9 Obesity, unspecified; R12 Heartburn; M35.9 Systemic involvement of connective tissue, unspecified
CPT/HCPCS: 36415; 80053; 80061; 85652; 82607; 82746; 83036; 83735; 85025; 86140

== ENCOUNTER 2024-04-08 00:56 | Outpatient (CLI) | payer BC, SELFPAY ==
--- NOTE | 2024-04-08 | ETT_ITS ---
APPROVED REPORT Exam: Exercise Treadmill Patient Location: Out-Patient Room/Bed: Stress Nurse: Melly Tellez RN; Shima Elder RN Ordering Provider:ANKIT ARORA, Contact Number: [phone] BMI: 36.47 Baseline Rhythm: Sinus Rhythm Indications: atypical chest pain Medical History Medical History: connective tissue disease, GERD Cardiac Medications: leflunomide, hydroxychloroquine, omeprazole, lexapro, gabapentin Allergies: No known drug allergies Cardiac Risk Factors: obesity Previous Cardiac Procedures: none Pretest Chest Pain Characteristics: No chest pain Exercise History: Sedentary Physical Disabilities: none Lung Sounds: Clear to auscultation Heart Sounds: Regular Stress Test Details Test: Exercise stress testing was performed using a Hammad protocol. Rest Stress HR Resting HR Supine: 85 bpm Max Heart Rate (APMHR): 176 bpm Resting HR Standin bpm Target HR (85% APMHR): 150 bpm Max HR Achieved: 158 bpm % of APMHR: 90 Recovery HR: 92 bpm HR response to stress: Normal HR response to stress BP Resting BP Supine: 122/82 mmHg Resting BP Standin/82 mmHg Max BP: 170/60 mmHg Recovery BP: 124/86 mmHg BP response to stress: Normal blood pressure response to stress. ECG Resting ECG: Sinus Rhythm Stress ECG: Sinus Tachycardia ST Change: No significant ST segment changes noted Arrhythmia: None Recovery ECG: Sinus Rhythm Recovery ST Change: No significant ST segment changes noted Recovery Arrhythmia: None Clinical Reason for Termination: Target HR Achieved Stress Symptoms: none Exercise duration: 05 min51 sec Highest Stage Reached: Stage 2: 2.5 mph at 12% grade. Exercise capacity: 7.05 METs Angina Score: None Chappell Treadmill Score: 5.6 Rate Pressure Product: [id number] Stress ECG Conclusion 1. Resting electrocardiogram was normal 2. Patient exercised on the Hammad protocol and completed a workload of 7 METS 3. Normal heart rate and blood pressure response to exercise. The patient achieved 90% of predicted heart rate for age 4. There was no electrocardiographic evidence of myocardial ischemia 5. There were no significant dysrhythmias Chappell Treadmill Score is 5.6 which is Low risk. Stress Test Summary STAGE Time (mins) Speed (mph) Grade (%) HR BP SpO2 SYMPTOMS METS Supine 85 122/82 97 Standing 91 120/82 1 3 1.7 10 126 140/70 98 4.5 2 6 2.5 12 158 7 1 min recovery 125 170/60 98 3 min recovery 109 156/62 6 min recovery 92 124/86 98
== END 2024-04-08 01:16 ==
LOC: DI 00:56
PROVIDERS: PCP Nurse Practitioner Family; Visit Provider Internal Medicine
DX: R07.89 Other chest pain (principal)
CPT/HCPCS: 93017

== ENCOUNTER 2024-05-28 03:03 | Outpatient (CLI) | payer BC, SELFPAY ==
[2024-05-28 16:27] LABS: Abs Immature Grans 0.01 10^3/uL (0.0-0.06); Absolute Basophil Count 0.09 10^3/uL (0.0-0.2); Absolute Lymphocyte Count 1.87 10^3/uL (1.2-3.4); Absolute Neutrophil Count 5.36 10^3/uL (1.2-6.7); Basophils % 1.1 %; Eosinophils % 2.4 %; HCT 42.2 % (36.0-46.0); HGB 13.5 g/dL (11.2-15.7); Immature Grans % 0.1 %; Lymphocytes % 22.4 %; MCH 27.6 pg (27.0-33.0); MCV 86 fL (80-95); MPV 11.7 fL (8.0-11.0); Monocytes % 9.6 %; Neutrophils % 64.4 %; Platelet Count 218 10^3/uL (130-400); RDW 14.6 % (11.7-14.6); RDW-SD 46.1 fL; WBC 8.33 10^3/uL (4.4-10.8)
[2024-05-28 17:06] LABS: ALT 24 U/L (14-59); AST 20 U/L (15-37); Alkaline Phosphatase 82 U/L (46-116); Anion Gap 7.6 mmol/L (3-11); BUN 15 mg/dL (7-18); Bilirubin, Total 0.23 mg/dL (0.2-1.0); CO2 24.4 mmol/L (21.0-32.0); CREATININE 0.9 mg/dL (0.55-1.02); Calcium 8.8 mg/dL (8.5-10.1); Chloride 108 mmol/L (98-107); Estimated GFR 80.34 (mL/min/1.73m2); Glucose 94 mg/dL (74-106); Potassium 4.1 mmol/L (3.5-5.1); Sodium 140 mmol/L (136-145); Total Protein 6.8 g/dL (6.4-8.2)
== END 2024-05-28 03:04 | disposition home or self-care (01) ==
LOC: LBO 03:03
PROVIDERS: PCP Nurse Practitioner Family; Visit Provider Internal Medicine
DX: M35.9 Systemic involvement of connective tissue, unspecified (principal)
CPT/HCPCS: 36415; 80053; 85025

== ENCOUNTER 2024-08-20 03:05 | Outpatient (CLI) | payer BC, SELFPAY ==
[2024-08-26 13:14] LABS: 25-Hydroxy D Total 36 ng/mL; 25-Hydroxy D2 13 ng/mL; 25-Hydroxy D3 23 ng/mL
== END 2024-08-20 03:06 | disposition home or self-care (01) ==
PROVIDERS: PCP Nurse Practitioner Family; Visit Provider Nurse Practitioner Family
DX: M35.9 Systemic involvement of connective tissue, unspecified (principal)
CPT/HCPCS: 36415; 82306

== ENCOUNTER 2024-10-14 03:03 | Outpatient (CLI) | payer BC, SELFPAY ==
[2024-10-14 16:17] LABS: Abs Immature Grans 0.04 10^3/uL (0.0-0.06); Absolute Basophil Count 0.08 10^3/uL (0.0-0.2); Absolute Eosinophil Count 0.25 10^3/uL (0.0-0.7); Absolute Lymphocyte Count 2.26 10^3/uL (1.2-3.4); Absolute Monocyte Count 0.75 10^3/uL (0.1-0.8); Absolute Neutrophil Count 5.53 10^3/uL (1.2-6.7); Basophils % 0.9 %; Eosinophils % 2.8 %; HGB 13.8 g/dL (11.2-15.7); Immature Grans % 0.4 %; Lymphocytes % 25.4 %; MCH 27.6 pg (27.0-33.0); MCHC 31.4 % (32.0-36.0); MCV 88 fL (80-95); MPV 11.1 fL (8.0-11.0); Monocytes % 8.4 %; Neutrophils % 62.1 %; Platelet Count 255 10^3/uL (130-400); RDW-SD 48.6 fL; WBC 8.91 10^3/uL (4.4-10.8)
[2024-10-14 17:03] LABS: ALT 40 U/L (14-59); AST 25 U/L (15-37); Albumin 3.3 g/dL (3.4-5.0); Alkaline Phosphatase 86 U/L (46-116); Anion Gap 7.5 mmol/L (3-11); BUN 12 mg/dL (7-18); Bilirubin, Total 0.3 mg/dL (0.2-1.0); CO2 26.5 mmol/L (21.0-32.0); Calcium 9.1 mg/dL (8.5-10.1); Chloride 105 mmol/L (98-107); Glucose 91 mg/dL (74-106); Potassium 3.6 mmol/L (3.5-5.1); Sodium 139 mmol/L (136-145); Total Protein 6.9 g/dL (6.4-8.2)
== END 2024-10-14 03:04 | disposition home or self-care (01) ==
LOC: LBO 03:06
PROVIDERS: PCP Nurse Practitioner Family; Visit Provider Internal Medicine
DX: M35.9 Systemic involvement of connective tissue, unspecified (principal)
CPT/HCPCS: 36415; 80053; 85025

== ENCOUNTER 2025-01-13 02:51 | Outpatient (CLI) | payer BC, SELFPAY ==
[2025-01-13 16:16] LABS: Abs Immature Grans 0.02 10^3/uL (0.0-0.06); HCT 42.1 % (36.0-46.0); HGB 13.6 g/dL (11.2-15.7); Immature Grans % 0.2 %; MCH 28.4 pg (27.0-33.0); MCHC 32.3 % (32.0-36.0); MCV 88 fL (80-95); MPV 11.3 fL (8.0-11.0); Platelet Count 249 10^3/uL (130-400); RBC 4.79 10^6/uL (3.93-5.22); RDW 14.7 % (11.7-14.6); RDW-SD 47.7 fL; WBC 8.96 10^3/uL (4.4-10.8)
[2025-01-13 17:06] LABS: ALT 30 U/L (14-59); AST 20 U/L (15-37); Albumin 3.1 g/dL (3.4-5.0); Alkaline Phosphatase 86 U/L (46-116); Anion Gap 8.3 mmol/L (3-11); BUN 15 mg/dL (7-18); Bilirubin, Total 0.2 mg/dL (0.2-1.0); CO2 24.7 mmol/L (21.0-32.0); Calcium 8.9 mg/dL (8.5-10.1); Chloride 105 mmol/L (98-107); Estimated GFR 80.34 (mL/min/1.73m2); Glucose 106 mg/dL (74-106); Potassium 4.3 mmol/L (3.5-5.1); Sodium 138 mmol/L (136-145); Total Protein 7.0 g/dL (6.4-8.2)
== END 2025-01-13 02:52 | disposition home or self-care (01) ==
LOC: LBO 02:51
PROVIDERS: PCP Nurse Practitioner Family; Visit Provider Internal Medicine
DX: M35.9 Systemic involvement of connective tissue, unspecified (principal)
CPT/HCPCS: 36415; 80053; 85025

== ENCOUNTER 2025-04-18 09:42 | Outpatient (REF) | payer BC, SELFPAY ==
[2025-04-18 16:04] LABS: Abs Immature Grans 0.02 10^3/uL (0.0-0.06); HCT 43.9 % (36.0-46.0); HGB 13.7 g/dL (11.2-15.7); Immature Grans % 0.3 %; MCH 27.2 pg (27.0-33.0); MCHC 31.2 % (32.0-36.0); MCV 87 fL (80-95); MPV 12.5 fL (8.0-11.0); Platelet Count 257 10^3/uL (130-400); RBC 5.04 10^6/uL (3.93-5.22); RDW 14.4 % (11.7-14.6); RDW-SD 46.0 fL; WBC 5.73 10^3/uL (4.4-10.8)
[2025-04-18 16:06] LABS: ESR 15 mm/hr (0-20)
[2025-04-18 17:12] LABS: ALT 26 U/L (14-59); AST 17 U/L (15-37); Albumin 3.2 g/dL (3.4-5.0); Alkaline Phosphatase 80 U/L (46-116); Anion Gap 7.9 mmol/L (3-11); BUN 7 mg/dL (7-18); Bilirubin, Total 0.3 mg/dL (0.2-1.0); CO2 27.1 mmol/L (21.0-32.0); Calcium 9.1 mg/dL (8.5-10.1); Chloride 106 mmol/L (98-107); Glucose 86 mg/dL (74-106); Potassium 4.6 mmol/L (3.5-5.1); Sodium 141 mmol/L (136-145); Total Protein 6.7 g/dL (6.4-8.2)
[2025-04-18 22:03] LABS: CRP, High Sensitivity 9.67 mg/L (See Note)
[2025-04-21 09:41] LABS: Lyme Ab w Rflx to Lyme Confirm Negative (Negative)
[2025-04-21 14:13] LABS: B. miyamotoi PCR Negative (Negative); Babesia divergens/MO-1 Negative (Negative); Ehrlichia muris eauclairensis Negative (Negative)
== END 2025-04-18 09:43 | disposition home or self-care (01) ==
LOC: NCHCN 09:42
PROVIDERS: PCP Nurse Practitioner Family; Visit Provider Nurse Practitioner Family
DX: M35.9 Systemic involvement of connective tissue, unspecified (principal); R76.89 Other specified abnormal immunological findings in serum; R79.82 Elevated C-reactive protein (CRP); M79.18 Myalgia, other site
CPT/HCPCS: 80053; 85652; 86141; 87798; 85025; 86618

== ENCOUNTER 2025-05-27 01:34 | Outpatient (CLI) | payer BC, SELFPAY ==
[2025-05-27 16:57] LABS: Abs Immature Grans 0.03 10^3/uL (0.0-0.06); HCT 42.5 % (36.0-46.0); HGB 13.3 g/dL (11.2-15.7); Immature Grans % 0.4 %; MCH 26.5 pg (27.0-33.0); MCHC 31.3 % (32.0-36.0); MCV 85 fL (80-95); MPV 11.0 fL (8.0-11.0); Platelet Count 276 10^3/uL (130-400); RBC 5.01 10^6/uL (3.93-5.22); RDW 14.5 % (11.7-14.6); RDW-SD 44.4 fL; WBC 8.40 10^3/uL (4.4-10.8)
[2025-05-27 18:16] LABS: ALT 32 U/L (10-49); AST 25 U/L (<34); Albumin 4.1 g/dL (3.2-5.0); Alkaline Phosphatase 85 U/L (46-116); Anion Gap 9.8 mmol/L (3-11); BUN 13 mg/dL (9-23); Bilirubin, Total 0.3 mg/dL (0.2-1.2); CO2 26.2 mmol/L (20.0-31.0); Calcium 9.2 mg/dL (8.3-10.6); Chloride 106 mmol/L (98-107); Glucose 87 mg/dL (74-106); Potassium 4.3 mmol/L (3.5-5.1); Sodium 142 mmol/L (136-145); Total Protein 6.9 g/dL (5.7-8.2)
== END 2025-05-27 01:35 | disposition home or self-care (01) ==
LOC: LBO 01:34
PROVIDERS: PCP Nurse Practitioner Family; Visit Provider Internal Medicine
DX: M35.9 Systemic involvement of connective tissue, unspecified (principal)
CPT/HCPCS: 36415; 80053; 85025